=== PATIENT | male | born 1935 | race Caucasian/White ===

== ENCOUNTER 2023-11-05 13:43 | Inpatient (IN) | payer OTHER, SELFPAY ==
[2023-11-05] VITALS (33 sets, daily range): BP systolic 82–151; BP diastolic 53–124; BMI 24.8; BMI 24.7
--- NOTE | 2023-11-05 08:58 | ED.GENMED ---
History of Present Illness
General
Chief Complaint: CVA/TIA Symptoms
Time Seen by Provider: 11/05/23 08:57
History of Present Illness
History of Present Illness:
HPI: The patient presents due to a change in mental status. He was last seen normal/at his baseline at midnight (9 hours ago). At some point this morning, he was found altered. EMS was called and they brought him here for further evaluation.
Family found him near his walker in an awkward position. Abrasions were noted to the knees as well as a small abrasion/very superficial laceration to the chin. He normally walks with a walker and communicate without difficulty. EMS states that
the blood sugar was 300.
EXAM:
GENERAL: The patient is ill-appearing
EYES: Miosis bilaterally approximately 2 mm
HEENT: Moist oral mucosa
CARDIOVASCULAR: No murmurs, normal heart rate, regular rhythm, No chest wall tenderness
PULMONARY: No respiratory distress, breath sounds are clear and equal
ABDOMEN: Soft with no peritoneal signs, no tenderness
NEUROLOGIC: The patient appears globally weak, he does not attempt to move against gravity in any extremity,
PSYCHIATRIC: Appropriate mental status, normal insight and judgement
EXTREMITIES: Nontender, no edema, moves all extremities equally
SKIN: No rash, no lesions
TIME OF INITIAL ENCOUNTER: 9 AM
NUMBER AND COMPLEXITY OF PROBLEMS ADDRESSED AT THE ENCOUNTER
� Chronic conditions affecting care: Atrial fibrillation on Eliquis
� Acute Exacerbation and/or Progression of Chronic Illness: This is an acute problem
� Differential Diagnosis includes: Ischemic stroke, intracranial hemorrhage, medication effect, sepsis, hypoglycemia
AMOUNT AND/OR COMPLEXITY OF DATA TO BE REVIEWED AND ANALYZED
� I performed an independent evaluation of and my interpretation is:
EKG: A-fib 115, nonspecific ST abnormality, and 2020 he was in a sinus rhythm
CT: CT of the brain reviewed at 9:27 AM and shows no intracranial hemorrhage or other acute abnormality; I also personally viewed the CT of the C-spine and see no acute fracture but noted rather significant degenerative disease
X-rays: Chest x-ray shows no acute abnormality
Laboratory Studies: White count is 29.9, of note leukocytosis is frequently seen since 2019 but today's is higher than prior
Other:
� Review of other/old records: Echo from July 2022 showed normal systolic function with mild valvular disease
� Clinical information was obtained by an independent historian: I spoke to EMS and as of 9:09 AM I am waiting to speak to family. I spoke to the son at 9:11 AM, the son states that he has had multiple strokes in the past but
normally can communicate and able to use a walker and is able to feed himself. Son indicates that he is 'DNR' and does not want any aggressive measures.
� Prescriptions/Medications Considered but not given:
� Further testing considered but not performed:
RISK OF COMPLICATIONS AND/OR MORBIDITY OR MORTALITY OF PATIENT MANAGEMENT
� Social determinants of health affecting care: Lives at home with family
� Discussion with other providers: I spoke to Dr. Mathews who also evaluated patient at 9:10 AM; I spoke to Dr. Unger regarding MRI request by Dr. Mathews at 9:55 AM; I discussed case with Dr. Ayala who recommends additional
bicarb and rectal Kayexalate. Hospitalist for admission.
� Escalation of care including admission/observation vs risk of discharge considered: The patient has rather significant aphasia but is globally weak. I spoke to Dr. Mathews at 9:05 AM and we decided to make him a stroke alert.
CT brain and CT of the C-spine do not show any acute abnormality. Dr. Mathews also recommends MRI of the C and T-spine noncontrast which she has ordered. I spoke to the son at bedside at 10:10 AM who tells me that he is in permanent A-fib. I also
spoke to the lab indicating that they checked the potassium twice and it is confirmed to be 8.0 without hemolysis. Hyperkalemia treatment has been ordered at 10:10 AM. The nurse drained his bladder and there was only 150 mL of urine in the
bladder�no evidence for urinary retention. He was given IV fluids. He was initially given 6 units of IV insulin. Repeat blood sugar at 11:24 AM is 333. Will give an additional 4 units of insulin. MRI is ready for him, will plan rectal
Kayexalate after he returns from MRI.
Past History
Past History
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
orthostatic hypotension, vitamin B12 deficiency, erectile dysfunction) and Other (syncope in 2002)
ED Past Surgical History: Cardiac (A. fib ablation November 2016), Orthopedic (L (2006) and R (2011) hip replacments.), Tonsilectomy and Other (cataract extractions, pulmonary vein isolation 2016)
Social History
Tobacco: Former smoker (Quit at age 27, smoked one half pack per day for less than 10 years)
Alcohol: Occasional
Personal:
Living: with family
Employment: Retired
Family History
Family History: Other (reviewed and noncontributory)
Phy Exam
Physical Exam
Physical Exam:
See HPI
Scores
NIH Stroke Score
Level of Consciousness: 1 - Arousable
LOC Questions: 2-Neither correct
LOC Commands: 1-Performs one correctly
Best Horizontal Gaze: 0-Normal
Visual Wilcox: 0=Normal, no visual loss
Facial Palsy: 0=Normal, symmetrical
Motor - Right Arm: 2=Partial vs. gravity
Motor - Left Arm: 2=Partial vs. gravity
Motor - Right Le-Partial vs. gravity
Motor - Left Le-Partial vs. gravity
Limb Ataxia: 0-Absent
Sensation: 0-Normal
Best Language: 2-Severe aphasia
Dysarthria: 2-Severe slurring
Extinction and Inattention: 0-No abnormality
Total Score:: 16
Course
Orders/Labs/Results
Orders:
Orders
11/05/23 08:57
Electrocardiogram (*1) Urgent
Reason for Study: TIA/Stroke
CT Cervical Spine W/o Iv Contr Urgent
Comment:
Reason For Exam: trauma
EKG- Treatment ONCE
11/05/23 09:05
CT Head W/o Cont STROKE ALERT Urgent
Comment:
Reason For Exam: alt ms
CT Head/Neck Ang STROKE ALERT Urgent
Comment:
Reason For Exam: alt ms
11/05/23 09:10
Basic Metabolic Panel Urgent
Complete Blood Count/With Diff Urgent
Creatine Phosphokinase Urgent
Comment: ADD ON
Manual Differential Urgent
11/05/23 09:32
Straight cath- Treatment ONCE
0.9% Sodium Chloride 1000 ml [Nss] 1,000 ml IV BOLUS
11/05/23 09:33
CR Chest Portable - 1 View Urgent
Comment:
Reason For Exam: alt ms
Reason Study Needs to be Portable: Patient Unstable
11/05/23 09:45
MR Cervical Spine Without & W Stat
Reason For Exam: Flaccid quadriplegia, ? spine contusion or infarct
Recent pill cam endoscopy?: No
MR Thoracic Spine W/o & With Stat
Reason For Exam: Flaccid quadriplegia, ? spine contusion or infarct
Recent pill cam endoscopy?: No
11/05/23 09:46
Blood Culture Q30M
ROSAMARIA Source: Blood/Venous
Specimen Description:
11/05/23 10:04
Lactic Acid Q4H
Comment: CANCEL 2nd LACTIC ACID IF 1st LACTIC ACID IS LESS THAN 2
Blood Culture Q30M
ROSAMARIA Source: Blood/Venous
Specimen Description:
11/05/23 10:07
Albuterol Nebs [Ventolin Nebules] 2.5 mg INH R NOW STA
Calcium Gluconate 1 gram/100mL [Calcium Gluconate] 1 gram in 100 ml IV ONCE
Dextrose 50%-Water [Dextrose 50% Syringe] 25 grams IV NOW STA
Insulin Human Regular [Novolin R] 6 units IV NOW STA
Sodium Bicarbonate 50 meq IV NOW STA
11/05/23 10:08
Peak Flow Rate [RESP] Urgent
Quantity: 1
Pre-Bronchodilator: Yes
Post Bronchodilator: Yes
Special Instructions: Pre and Post Peak Flow before and after Bronchodilator
11/05/23 10:33
Urinalysis Reflex To Culture Urgent
Date Specimen was Collected: 11/05/23
Time Specimen was Collected: 10:32
Urine Microscopic Reflex Cult Urgent
Urine Culture Urgent
ROSAMARIA Source: U
Specimen Description:
Date Specimen was Collected: 11/05/23
Time Specimen was Collected: 10:32
11/05/23 10:42
0.9% Sodium Chloride 1000 ml [Nss] 1,000 ml IV BOLUS
11/05/23 10:51
Speech Screening from Mary Routine
11/05/23 10:52
Cefepime HCl [Maxipime] 1,000 mg IV NOW STA
11/05/23 10:59
Acetone [B-Hydroxybutyrate] Urgent
Glucose Urgent
Venous Blood Gas Urgent
%Oxygen/Room Air: 2lpm
11/05/23 11:02
Sodium Bicarbonate 50 meq IV NOW STA
Sodium Zirconium Cyclosilicate [Lokelma] 10 gram PO NOW STA
11/05/23 11:04
Sps Sodium Polystyrene Sulfon [Kayexalate Suspension] 45 grams RECTAL NOW STA
11/05/23 11:08
Vancomycin [Vancocin] 2,000 mg 0.9% Sodium Chloride 500 ml [Nss] 500 ml IV NOW
11/05/23 11:15
Bedside Glucose- Treatment ONCE
11/05/23 11:17
Sterile Water [Sterile Water For Injection] 10 ml .ROUTE .[facility]
11/05/23 11:23
Insulin Human Regular [Novolin R] 4 units IV NOW STA
11/05/23 13:08
Add On- LAB Urgent
Tests Added?: cpk
11/05/23 13:15
Add On- LAB Urgent
Tests Added?: lft's, albumin, mag , phos
11/05/23 13:45
Lactic Acid Q4H
Comment: CANCEL 2nd LACTIC ACID IF 1st LACTIC ACID IS LESS THAN 2
Abnormal Lab Results
11/05/23 11/05/23 11/05/23
09:10 10:04 10:33
WBC 29.9 H 10^3/uL
(4.8-10.8)
RBC 4.48 L 10^6/uL
(4.70-6.10)
RDW 15.5 H %
(11.5-14.5)
MPV 12.1 H fL
(7.4-10.4)
Abs Neuts (Manual) 28.4 H 10^3/uL
(1.4-6.5)
Segmented Neutrophils 80 H %
(42-75)
Band Neutrophils 15 H %
(0-3)
Lymphocytes (Manual) 1 L %
(20-51)
Sodium 134 L mmol/L
(135-145)
Potassium 8.0 H* mmol/L
(3.5-5.1)
Carbon Dioxide 14 L* mmol/L
(22-30)
BUN 23 H mg/dl
(9-20)
Creatinine 2.1 H mg/dL
(0.7-1.3)
Glucose 305 H mg/dl
(70-99)
Lactic Acid 10.5 H* mmol/L
(0.7-2.0)
Calcium 7.2 L mg/dl
(8.4-10.2)
Urine Ketones 2+ A
(Negative)
Ur Occult Blood Reflex 2+ A
(Negative)
Urine Bacteria (Reflex) Moderate A
(Negative)
Urine Glucose 2+ A
(Negative)
Urine Albumin (Reflex) 1+ A
(Neg - Trace)
POC Glucose
11/05/23
11:17
WBC
RBC
RDW
MPV
Abs Neuts (Manual)
Segmented Neutrophils
Band Neutrophils
Lymphocytes (Manual)
Sodium
Potassium
Carbon Dioxide
BUN
Creatinine
Glucose
Lactic Acid
Calcium
Urine Ketones
Ur Occult Blood Reflex
Urine Bacteria (Reflex)
Urine Glucose
Urine Albumin (Reflex)
POC Glucose 333 H mg/dl
(70-99)
11/05/23 09:10
Vital Signs
Initial and Last Documented VS:
Initial Vital Signs
Pulse Resp Pulse Ox
103 35 93
11/05/23 09:05 11/05/23 09:05 11/05/23 09:05
Last Documented Vital Signs
Temp Pulse Resp BP Pulse Ox
95.6 F L 99 27 100/83 98
11/05/23 09:10 11/05/23 11:15 11/05/23 11:15 11/05/23 11:00 11/05/23 11:15
*Critical Care Note
Total Time (30-74mins, 75-104mins- exclusive of procedures): 65 minutes
comment:
The patient was seen initially as a stroke alert. CT head and CTA head and neck are relatively unremarkable for acute abnormality. He is on Eliquis. There is no evidence for hemorrhage. He is found to have an initial potassium of 8.0.
ED Attending Note
-
Portions of this chart may have been created with voice recognition software.� Occasional wrong word or��sound alike� substitutions may have occurred due to the inherent limitations of voice recognition software.
Discharge Plan
Departure
Patient Disposition: Admit
Date of Disposition: 11/05/23
Time of Disposition: 11:06
Presentation/result/management discussed w/ accepting MD/DO: Hospitalist
Discharge Problem:
NEFTALI (acute kidney injury)
Prescriptions:
No Action
lisinopril 20 MG tablet
20 mg PO BID 0RF
atorvastatin [Lipitor] 40 mg Tablet
40 mg PO DAILY
acetaminophen [Tylenol] 325 mg Tablet
650 mg PO Q4HPRN PRN (Reason: MILD PAIN)
amlodipine [Norvasc] 2.5 mg Tablet
2.5 mg PO SUTUTHSA
tamsulosin [Flomax] 0.4 mg Capsule
0.4 mg PO DAILY
vitamin B complex [B Complete] Tablet
1 tab PO DAILY
metoprolol succinate [Toprol XL] 25 mg Tablet Extended Release 24 Hr
25 mg PO DAILY
cholecalciferol (vitamin D3) [Vitamin D3] 25 mcg (1,000 unit) Tablet
25 mcg PO DAILY
furosemide 40 MG tablet
40 mg PO MOWEFR
cyanocobalamin (vitamin B-12) 1,000 MCG tablet
1,000 mcg PO DAILY Qty: 60 0RF
Eliquis 5 MG tablet
5 mg PO BID Qty: 60 0RF
Referrals:
Fran Robin MD [Family Provider] -
Interventions
Interventions:
*Risk Screen - Suicide Last Done: 11/05/23 09:10
*General Assessment Last Done: 11/05/23 09:10
*Neglect/Abuse Screening Last Done: 11/05/23 09:10
ED- Fall Risk Assessment Last Done: 11/05/23 09:10
ED- Pulmonary Assessment Last Done: 11/05/23 10:00
ED- Neurological Assessment Last Done: 11/05/23 10:00
ED- Cardiac Assessment Last Done: 11/05/23 10:00
ED Swallowing Screen Last Done: 11/05/23 10:52
Discharge Date and Time
Print Language: SYRIAC
--- NOTE | 2023-11-05 09:20 | EDRN ---
Rylee cervical collar placed prior to leaving CT scan.
--- NOTE | 2023-11-05 09:23 | CON.NEURO4 ---
Consultation - Neurology 4
-
CONSULTING PHYSICIAN: Carlos Mathews
REFERRING PHYSICIAN: ER
DICTATED BY: Carlos Mathews
DATE/TIME OF REQUEST: 11/05/23
DATE/TIME OF CONSULTATION: 11/05/23
Reason for Consultation: Stroke alert, generalized severe weakness, speech abnormality
History of Present Illness:
Patient is an 88-year-old male with a past no history of ischemic stroke, dementia, atrial fibrillation presenting the hospital with confusion and generalized weakness.
He was last seen by family last night around 12 to 1 AM and was found around 730 this morning in an unusual position with the arms bent around him as well as extended at the back and neck over chair in the morning. His son feels that his speech is
a little bit abnormal for him but his teeth are nodding currently. Patient denies any pain. Stroke alert was called due to generalized severe weakness along with abnormal speech.
Lab work notable for leukocytosis to 29.9, potassium of 8.0, creatinine of 2.1, glucose of 305.
No history of any head or neck trauma or spine surgeries.
Past Medical History: Multiple ischemic strokes, dementia, hypertension, paroxysmal atrial fibrillation, HFpEF
Surgical History: Cardiac ablation for atrial fibrillation, bilateral hip replacements, tonsillectomy, cataract surgery
Family History: Unknown
Social History: Lives with his daughter, uses walker at baseline, retired, son lives in the area, no tobacco or alcohol
Allergies: No known drug allergies
Review of Symptoms:
Patient denies any fever, headache, chest pain, shortness of breath, GI or symptoms.
Physical Exam:
Elderly man no acute distress no signs of head or neck trauma, c-collar in place, oropharynx is dry, heart rate regular, breathing unlabored abdomen soft nontender, left knee with abrasion and swelling
Neurologic Examination:
Mental Status: Patient awake, mildly drowsy, says his full name, , obeys simple commands most of the time, attends and tracks examiner, slow speech, cognitive impairment is apparent
CN: Moderate dysarthria is present, no ptosis, pupils miotic 2-3 mm equal round and reactive to light bilaterally, visual wells intact to confrontation bilaterally, resting gaze midline, extra ocular movements are normal, face grossly symmetric
Motor: Patient shows no movement to pain in the arms bilaterally, overall has a quadriplegia with some movements of the toes bilaterally, has flaccid motor tone in the arms and legs in a symmetric fashion, he is able to wiggle his toes in both
feet to command but otherwise did not show any movements in the hips knees or ankles.
Sensory:Patient does report intact sensation to noxious stimulation in all extremities
Reflexes: Absent throughout in biceps triceps patella and achilles bialterally, babinski negative, no clonus
Coordination: Unable to assess due to generalized severe weakness
Gait: Unable to assess
Neuro Imaging: MRI of the cervical spine and thoracic spine with no acute spinal cord compression or obvious signs of acute intrinsic spinal cord abnormality small focus of open appears to be chronic myomalacia around C4-C5,
CTA head and neck no acute occlusions in MCA or basilar artery
CT head no hemorrhage, chronic strokes noted, no acute infact
Impressions
1. 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 MRI of the cervical and thoracic spine failed to show any acute lesion and no
signs of traumatic lesion to the spine either.
2. History of multiple strokes and likely vascular dementia at baseline
3. Not concerned for acute stroke as neurologic exam does not localize to the brain
4. NEFTALI
5. Severe hyperkalemia
6. Hyperglycemia
Patient has the following risk factors for their symptoms:
IV Tenecteplase/IAT candidacy: Is on Apixaban and thus not candidate for TNK/thrombolytics, not felt to be acute ischemic stroke
Recommendations:
1. Okay to remove cervical spine collar
2. Correct hyper kalemia urgently
3. Follow renal function and treat NEFTALI
4. Treat hyperglycemia
5. Okay to continue his existing home apixaban
6. Not recommending brain MRI
7. Neurologic checks monitor for improvement in muscle strength as his metabolic abnormalities are treated
Discussed patient care with: Patient, his son, ER physician
[2023-11-05 09:29] LABS: Hematocrit 40.7 % (39.0-52.0); Hemoglobin 13.6 g/dL (13.0-18.0); Mean Corp Hgb Conc. 33.4 g/dL (33.0-37.0); Mean Corpuscular Hgb 30.4 pg (27.0-31.0); Mean Corpuscular Volume 90.8 fL (80.0-94.0); Mean Platelet Volume 12.1 fL (7.4-10.4); Nucleated Red Blood Cells % 0 % (-); Platelet Count 220 10^3/uL (130-400); Red Blood Cell Count 4.48 10^6/uL (4.70-6.10); Red Cell Dist. Width 15.5 % (11.5-14.5); White Blood Cell Count 29.9 10^3/uL (4.8-10.8)
[2023-11-05 09:41] LABS: Sodium 134 mmol/L (135-145)
--- NOTE | 2023-11-05 09:41 | EDRN ---
Portable CXR was just completed. Dr. Mathews in room w/ pt at this time.
--- NOTE | 2023-11-05 09:43 | EDRN ---
Dr. Mathis in room on arrival of pt.
[2023-11-05 10:05] LABS: Blood Urea Nitrogen 23 mg/dl (9-20); Calcium 7.2 mg/dl (8.4-10.2); Carbon Dioxide 14 mmol/L (22-30); Chloride 101 mmol/L (98-107); Glucose 305 mg/dl (70-99)
[2023-11-05] MEDS: DEXTROSE 50% SYRINGE 25 GRAMS IV (10:16)
[2023-11-05] MEDS: NOVOLIN R 6 UNITS IV (10:18)
[2023-11-05] MEDS: SODIUM BICARBONATE 50 MEQ IV ×2 (10:21→13:52)
[2023-11-05] MEDS: VENTOLIN NEBULES 2.5 MG INH (10:21)
[2023-11-05] MEDS: NSS 1000 IV ×3 (10:22→16:56)
[2023-11-05] MEDS: CALCIUM GLUCONATE 100 IV (10:28)
[2023-11-05 10:38] LABS: Lactic Acid 10.5 mmol/L (0.7-2.0)
[2023-11-05 10:50] LABS: Estimated Creatinine Clearance 23 ml/min; eGFR 29.72
[2023-11-05 10:51] LABS: Urine Albumin 1+ (Neg - Trace); Urine Bilirubin Negative (Negative); Urine Character Clear (Clear); Urine Color Yellow; Urine Glucose 2+ (Negative); Urine Ketone 2+ (Negative); Urine Leukocyte Negative (Negative); Urine Nitrite Negative (Negative); Urine Occult Blood 2+ (Negative); Urine Specific Gravity 1.025 (<1.030); Urine Urobilinogen Negative (Neg - 1+)
[2023-11-05 11:01] LABS: Absolute Neutrophils -Man Diff 28.4 10^3/uL (1.4-6.5); Band Neutrophils 15 % (0-3); Lymphocytes 1 % (20-51); Monocytes 4 % (2-9); Normal RBC Morphology Yes; Platelets Checked Yes; Segmented Neutrophils 80 % (42-75)
[2023-11-05 11:02] LABS: Total Cells Counted 100
[2023-11-05 11:10] LABS: Urine Mucus Few; Urine Squamous Cell 0-2 /LPF (Few)
[2023-11-05 11:11] LABS: Urine Bacteria Moderate (Negative); Urine Red Blood Cell 0-2 /HPF (0-2); Urine White Cell 0-2 /HPF (0-5)
[2023-11-05] MEDS: MAXIPIME 1000 MG IV (11:18)
[2023-11-05 11:27] LABS: Glucose - Point of Care 333 mg/dl (70-99)
[2023-11-05] MEDS: NOVOLIN R 4 UNITS IV (11:27)
--- NOTE | 2023-11-05 11:36 | EDRN ---
Will administer kayexelate enema post MRI.
--- NOTE | 2023-11-05 12:31 | HPS.HSE ---
Addendum entered and electronically signed by Manish Brown MD 11/05/23 14:59:
see my update note for addendum
Original Note:
Family Physician
-
Family Physician: Fran Robin
Chief Complaint
-
Confusion, fall
History of Present Illness
88-year-old male who was seen last normal at midnight 11/05/2023. He was found this morning confused and altered by his family near his walker in an awkward position with arms bent under him at 730 this morning. His states they live in an
in-law suite behind her daughter but she sleeps in a separate bedroom then her . There was noted to be abrasions to bilateral knees , nose and superficial abrasion to the chin. He ambulates with a walker without difficulty normally . In
the ER he was noted to be hyperglycemic with blood sugars in the 300s along with hyperkalemic, slight hypotension and slightly hypothermic. Pt had flu shot in the fall per and son he did not react well to this. I spoke with patient's
Colleen who states he was normal yesterday he was not complaining of any headache, sore throat, fever, chills, chest pain, palpitations, shortness of breath, cough, abdominal pain, nausea, vomiting, diarrhea. The patient is awake and alert to
name he can follow some commands. He denies any current pain he is unable to feel from his right and left and acute down to fingers. Sensation is intact from neck to trunk to abdomen
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
baseline
Medical History
Past Medical History
Past Medical History: Reports Other
Additional Past Medical History:
paroxysmal A-fib
Chronic diastolic CHF
HTN
HLD
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
ex-smoker
OA
BPH
Past Surgical History: Reports Other
Additional Past Surgical History:
Tonsillectomy
Left hip replacement 2006
Right hip replacement
12/19/2016 PVI ablation
Cataract extraction
Social History
Tobacco: Non-smoker
Alcohol: None
Drug: None
Personal:
Living: With Family (Lives with Colleen and in-law suite at daughter's)
Employment: Retired
Family History
Family History: Other (Per his mother of a at age 91 she had former CVA age 60, father old age failure to thrive history of GI ulcer, brother age 70s alcohol abuse sister 70 CVA)
Allergies / Home Medications
Allergies reflects when Allergies were last updated in [facility].
Home Medications with original date entered in [facility]
Allergy/Medication List:
Allergies
Allergy/AdvReac Type Severity Reaction Status Date / Time
tape Allergy blisters Uncoded 11/05/23 09:30
Home Medications
apixaban 5 mg tablet (Eliquis) 5 mg PO BID #60 tabs 04/07/19
cyanocobalamin (vitamin B-12) 1,000 mcg tablet 1,000 mcg PO DAILY #60 tabs 04/07/19
lisinopril 20 mg tablet 20 mg PO BID 05/30/20
acetaminophen 325 mg tablet (Tylenol) 650 mg PO Q4HPRN PRN MILD PAIN 11/05/23
amlodipine 2.5 mg tablet (Norvasc) 2.5 mg PO SUTUTHSA 11/05/23
atorvastatin 40 mg tablet (Lipitor) 40 mg PO DAILY 11/05/23
cholecalciferol (vitamin D3) 25 mcg (1,000 unit) tablet (Vitamin D3) 25 mcg PO DAILY 11/05/23
furosemide 40 mg tablet 40 mg PO MOWEFR 11/05/23
metoprolol succinate 25 mg tablet,extended release 24 hr (Toprol XL) 25 mg PO DAILY 11/05/23
tamsulosin 0.4 mg capsule (Flomax) 0.4 mg PO DAILY 11/05/23
vitamin B complex 1 tab PO DAILY 11/05/23
Review of Systems
-
History Source: Patient and Family ( Colleen and son Donny via phone)
A 12 point ROS was completed and negative except as noted: Yes
Constitutional: Reports Fatigue; Denies Fever
EENT: Reports Other (Abrasion to nose and lower chin); Denies Sore Throat
Respiratory: Denies Cough or Trouble Breathing
Cardiac: Denies Chest Pain, Diaphoresis, Palpitations or Syncope
Abdomen/GI: Reports Abdominal Pain (Epigastric); Denies Nausea, Vomiting, Diarrhea, Constipated, Bloody Stools or Black Stools
: Denies Dysuria, Frequency, Flank Pain, Incontinence or Difficulty Voiding
Musculoskeletal: Reports Other (Bilateral knee abrasion); Denies Joint Pain or Edema
Skin: Reports Other (Bilateral knee abrasions); Denies Itching or Rash
Neurological: Reports Weakness (Generalized) and Other (Unable to move arms and legs can wiggle toes no sensation from elbows to fingers bilaterally including with needle); Denies Dizzy or Headache
Endocrine: Reports No Symptoms
Hematologic/Lymphatic: Reports No Symptoms
Psych: Reports Calm
Physical Exam
Vital Signs
Vital Signs
Temp Pulse Resp BP Pulse Ox
95.6 F L 99 27 100/83 98
11/05/23 09:10 11/05/23 11:15 11/05/23 11:15 11/05/23 11:00 11/05/23 11:15
Physical Exam
General: Other (Lethargic but able to communicate); No Pain or Fever
HEENT: NormoCephalic, Anicteric, PERRLA, [place] Conjunctivae, No Ptosis, Neck Nontender and Other (Dry oral mucosa, abrasion nose, chin)
Respiratory: Clear; No Wheezes, Rales or Rhonchi
Cardiac: S1/S2 and Irregular Rhythm (A-fib 113-150); No Murmur, Rub, Gallop or Peripheral Edema
Breast: Deferred by me
GI: Soft, Non Distended, Normal Bowel Sounds, Tender (Epigastric) and No Hepatosplenomegaly
Genito-urinary: Deferred by me
Musculoskeletal: No Clubbing, No Cyanosis and No Edema
Skin: Warm, Dry and Other (Abrasions to nose, chin, bilateral knees)
Neuro: Awake, Alert, Oriented (To name, review of systems) and Other (Patient with no dentures at home although is able to speak clearly and answer appropriately, he is unable to move his upper and lower extremities he has no sensation from elbows
to fingers bilaterally); No Slurred Speech, Facial Droop or Tremors
Psych: Calm
Laboratory Results
-
11/05/23 09:10
Laboratory Results
Lactic Acid 10.5 mmol/L (0.7-2.0) H* 11/05/23 10:04
Data Reviewed
-
Diagnostic Radiology: Report Reviewed by me
CT Scan: Report Reviewed by me
MRI: Report Reviewed by me
Lab Data: Labs Reviewed by me
Impression/Plan
-
Impression/plan:
Admit to IMU
# Septic shock /bandemia unclear etiology
WBC 29.9 with left shift 15% bands, 95.6 F, 100/83, HR 99
82/62 > 100/83 after 2 liters NSS
Lactic acid 10.5 will trend
-Blood cultures x 2, UA FLAKE CUTTER OPERATOR, B hydroxybutyrate
-Keren hugger until normothermic
-IV vancomycin, IV cefepime renal dose
-IV Protonix 40 mg now and 40 mg daily
-IV 2 L NSS given in ER
-Follow CBC, CMP
CXR portable: Limited but unremarkable
#Aphasia/confusion concern for CVA versus encephalopathy from sepsis
#Hx CVA 05/25/2020 MRI report-infarct left basal ganglia 2.2 cm old lacunar infarcts bilaterally camara radiata, centrum semiovale, 7 millimeter old lacunar infarct right Kai
-Hold all p.o. meds
-Consult neurology
-Neurochecks every 4 hours
-Check lipid profile, HgbA1c
-Speech swallow eval
PT/OT/case management consult
CT head: Moderate to severe changes of cortical atrophy chronic ischemic disease unchanged from prior study no acute hemorrhage
Head and neck CTA: Nonhemodynamically significant atherosclerotic changes of the internal carotids bilaterally left greater than right. No carotid or vertebral artery dissection, no evidence of proximal intracranial arterial
stenosis or vessel occlusion bilaterally
# Hypotension secondary to septic shock/HTN�benign
BP 82/62 >100/83 > 130/90 will hold medication given n.p.o. and hypotensive
-Hold Norvasc as patient is n.p.o.
#Acute hyperkalemia likely secondary to renal impairment
K8.0 -lab checked x 2
-Consult nephro
-Bicarb given in ER, IV insulin
-Kayexalate rectal
-Follow BMP every 6
#NEFTALI-multifactorial sepsis, diuretics, NURA
-Bladder 150 cc retained urine
-Follow UA FLAKE CUTTER OPERATOR
-IV NSS 2 L given in ER
-Consult nephro
-Hold lisinopril
#Abdominal pain unclear etiology
-Check LFTs, amylase lipase
IV Protonix 40 mg now and daily
--Ct abdomen pelvis given neftali and abd pain
#Acute hyperglycemia with poss DKA
BS 300, anion gap 19 will repeat BMP stat
-Accu-Cheks with SSI, check HgbA1c
#Acute hypocalcemia
Calcium 7.2
-Will give 1 amp calcium gluconate
#A-fib with RVR/ A-fib
#Hx PVI ablation 12/19/2016
Heart rate 140s
Hold Eliquis, Toprol XL 25 mg daily
-IV Lopressor 5 mg now
-Consult CBC cardiology
# Sensorimotor deficit bilateral upper extremities likely due to hyperkalemia
MRI lumbar thoracic spine negative
Neurology following
#Fall likely secondary to sepsis/encephalopathy with abrasions knees, superficial abrasion chin, abrasion nose
-Wash wounds with soap and water apply dry nonstick dressings
-Consult wound care
#HLD
Check lipid profile
Hold Lipitor as patient is n.p.o.
#Hx chronic diastolic CHF
I/O, daily weights
Hold Lasix 40 mg Thursday
2D echo 08/01/2022: EF 55-60% no wall abnormalities, mild to moderate MR, mild AR, mild pulm HTN pulm pressure 47 mmHg
DVT prophylaxis
Iv heparin gtt no bolus as patient was on prior Eliquis and did take yesterday 11/04/2023
DNR/DNI per son Caio via phone but would like pressors if going to make patient comfortable. Advised IV pressors will help support blood pressure only not necessarily make the patient comfortable.
--- NOTE | 2023-11-05 12:39 | EDRN ---
Dr. Ayala down to see pt while in MRI and now speaking w/ pt's son. Pt remains in MRI.
--- NOTE | 2023-11-05 12:49 | PTOTSP ---
ST Screening
Chart reviewed. Pt admitted for change in mental status, confusion, and fall. NIHSS=15. Pt admitted for sepsis 2/2 unclear etiology (WBC 29.9; K 8.0; hypotensive; hypothermic). CT Head unremarkable for any acute changes. Pt with baseline mild
residual dysarthria and aphasia, per old notes. Pt with no current diet order.
If pt is too disoriented to take PO at this time, would recommend keeping pt NPO until more awake/alert/appropriate. If ENGAGEMENT SPECIALIST guidance is desired to determine appropriateness for PO diet initiation candidacy, please order formal speech language
pathology evaluation. Thank you.
--- NOTE | 2023-11-05 12:51 | EDRN ---
First MRI completed still having others done at this time.
[2023-11-05] MEDS: VANCOCIN 540 MG IV (13:52)
[2023-11-05] MEDS: KAYEXALATE SUSPENSION 45 GRAMS RECTAL (13:53)
[2023-11-05 13:58] LABS: Venous Blood Gas B.E. -9.8 mmol/L (-4 to +4); Venous Blood Gas HCO3 17.1 mmol/L (22-27); Venous Blood Gas O2 Sat % 95.5 %; Venous Blood Gas pCO2 40 mmHg (35-48); Venous Blood Gas pH 7.24 (7.32-7.43); Venous Blood Gas pO2 75 mmHg (30-50)
[2023-11-05 14:12] LABS: Glucose 254 mg/dl (70-99)
[2023-11-05 14:15] LABS: Blood Urea Nitrogen 28 mg/dl (9-20); Calcium 7.5 mg/dl (8.4-10.2); Carbon Dioxide 17 mmol/L (22-30); Chloride 106 mmol/L (98-107); Glucose 255 mg/dl (70-99); Potassium 3.4 mmol/L (3.5-5.1); Sodium 137 mmol/L (135-145)
--- NOTE | 2023-11-05 14:15 | EDRN ---
Dr. Ayala and Peng Gaines BUSINESS SUPPORT SPECIALIST in room w/pt at this time.
[2023-11-05 14:18] LABS: B-Hydroxybutyrate 0.21 mmol/L (0.02-0.27)
[2023-11-05 14:21] LABS: Lactic Acid 6.7 mmol/L (0.7-2.0)
--- NOTE | 2023-11-05 14:26 | W.PN.UPDATE ---
Update Note
Progress Note Update
I saw and examined the patient.
The [employer] [employer] note was reviewed and I agree with the note.
Comment: 88 y/o M, hx of chronic HFpEF, HLD, HTN, perm Afib on Eliquis, prior hx of CVAs presenting to hospital with generalized weakness, confusion. He was last seen around midnight as his normal and then found at 730 AM in a position where his
arms were bent around him, slumped over in a chair. His speech was abnormal. He was noted to have abrasions to knees, nose. No other known symptoms or complaints after discussing with .
At baseline ambulates with walker and lives in in-law suite.
In ER noted to have several metabolic derangements with hyperkalemia, NEFTALI, possible sepsis. A CVA alert was called and workup negative.
Patient given IVF, empiric Abx and K+ temporization measures and admitted.
Physical Exam
General: Other (Lethargic but able to communicate); No Pain or Fever
HEENT: NormoCephalic, Anicteric, PERRLA, [place] Conjunctivae, No Ptosis, Neck Nontender and Other (Dry oral mucosa, abrasion nose, chin)
Respiratory: Clear; No Wheezes, Rales or Rhonchi
Cardiac: S1/S2 and Irregular Rhythm (A-fib 113-150); No Murmur, Rub, Gallop or Peripheral Edema
Breast: Deferred by me
GI: Soft, Non Distended, Normal Bowel Sounds, Tender (Epigastric) and No Hepatosplenomegaly
Genito-urinary: Deferred by me
Musculoskeletal: No Clubbing, No Cyanosis and No Edema
Skin: Warm, Dry and Other (Abrasions to nose, chin, bilateral knees)
Neuro: Awake, Alert, Oriented (To name, review of systems) and Other (Patient with no dentures at home although is able to speak clearly and answer appropriately, he is unable to move his upper and lower extremities he has no sensation from elbows
to fingers bilaterally); No Slurred Speech, Facial Droop or Tremors
Psych: Calm
Assessment:
Admit IMU
Acute life-threatening hyperkalemia
NEFTALI
Severe metabolic (lactic acidosis)
Hypocalcemia
- s/p ER temporization: insulin/dextrose, IV Calc gluconate, Kayexalate, Lokelma, bicarb x 2, Albuterol, IVF
- repeat K+ is now 3.4
- repeat Cr 1.5
- continue IVF
- hold nephrotoxins
- bladder scans/SC protocol
Severe sepsis (leucocytosis, tachypnea, bandemia, lactic acidosis)
- continue sepsis protocol IVF; follow lactates
- may need pressors (ok'd by Son)
- check cultures
- check CT A/P (dry) to evaluate for any acute GI/ pathology
- empiric Vanco, Cefepime, Flagyl
Abdominal pain
- cannot tolerate PO or IV contrast
- check CT A/P (dry) to evaluate for any acute GI/ pathology
- await LFTs, lipase, trop
- IV PPI
Permanent A.fib with RVR
HX of Ablation
- check TSH, trop
- IV Lopressor x 1; hold PO
- ok for IV heparin - requires intensive monitoring
- Cardiology consulted
Aphasia/confusion concern for CVA versus encephalopathy from all above medical processes
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
Fall with knee, head abrasions
Hx of Multiple CVA and Vascular dementia
- treat K+ as above
- stat CT and CT-A negative, spinal MRI negative
- Neuro following
- neuro checks
- PT/OT/ST when able
- wound care for abrasions
Acute hyperglycemia from stress of medical illness
No hx of DM
- repeat BMP with AG 14
- + ketones but unlikely DKA
- sliding scale + accu-checks q6h while NPO
- check A1c
Essential HTN
- hold BP meds for sepsis state
HLD - hold statin
Hx chronic diastolic CHF
- monitor weights, I/Os
- hold Lasix
DVT ppx: IV Heparin
Code: DNR/DNI
[2023-11-05 14:32] LABS: Estimated Creatinine Clearance 32 ml/min
--- NOTE | 2023-11-05 14:36 | W.CON.NEPH ---
Consultation
-
Date/Time Consultation Requested: 11/05/23 1145
Date/Time Consultation Performed: 11/05/23 1415
Requesting Provider: Manish Jacobs
Performing Provider: Gayatri Sandoval
Reason for Consultation: NEFTALI, hyperkalemia with met acidosis
Medical History
-
Chief Complaint: AMS, fall
History of Present Illness:
88-year-old male with PMH of HTN on Amlodipine, lisinopril,BB, DCHF on lasix MWF, Afib on AC with Eliquis, HLD on statin ,prior CVA with no residual effect who was seen last normal at midnight 11/05/2023. He was found this morning confused and
altered by his family near his walker in an awkward position with arms bent under him at 730 this morning. Per they live in an in-law suite behind her daughter but she sleeps in a separate bedroom than her . There was noted to be
abrasions to bilateral knees , nose and superficial abrasion to the chin. He ambulates with a walker without difficulty normally . In the ER he was noted to be hyperglycemic with blood sugars in the 300s along with hyperkalemic at 8, cr at 2.1, no
EKG changes. Only 150cc urine on SC. slight hypotension and slightly hypothermic. The patient is awake and alert to name he can follow some commands. He denies any current pain he is unable to feel from his right and left and acute down to fingers.
chronic ambulatory dysfunction uses walker at baseline. He offers no CP or sob or cough or fever. No n/v. No Abd pain.
Past Medical History
paroxysmal A-fib
Chronic diastolic CHF
HTN
HLD
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
Dementia
ex-smoker
OA
BPH
Past Surgical History: Other (Tonsillectomy Left hip replacement 2006 Right hip replacement 12/19/2016 PVI ablation Cataract extraction)
Social History
son Caio is director of cardiac rehab at
Tobacco: Non-Smoker
Alcohol: None
Drug: None
Living: With Family
Employment: Retired
Family History
mother of a at age 91 she had former CVA age 60, father old age failure to thrive history of GI ulcer, brother age 70s alcohol abuse sister 70 CVA
Family History: Not Pertinent
Allergies / Home Medications
Allergy/AdvReac Type Severity Reaction Status Date / Time
tape Allergy blisters Uncoded 11/05/23 09:30
�Medication �Instructions �Recorded �Confirmed �Type
acetaminophen 325 mg tablet 650 mg PO Q4HPRN PRN MILD PAIN 11/05/23 11/05/23 History
(Tylenol)
amlodipine 2.5 mg tablet (Norvasc) 2.5 mg PO SUTUTHSA Blood Pressure 11/05/23 11/05/23 History
apixaban 5 mg tablet (Eliquis) 5 mg PO BID Blood Clot 11/05/23 11/05/23 History
Prevention/Tx
atorvastatin 40 mg tablet (Lipitor) 40 mg PO DAILY High Cholesterol 11/05/23 11/05/23 History
cholecalciferol (vitamin D3) 25 25 mcg PO DAILY Supplement 11/05/23 11/05/23 History
mcg (1,000 unit) tablet (Vitamin
D3)
cyanocobalamin (vitamin B-12) 1,000 mcg PO DAILY Supplement 11/05/23 11/05/23 History
1,000 mcg tablet
furosemide 40 mg tablet 40 mg PO MOWEFR Fluid 11/05/23 11/05/23 History
Retention/Swelling
lisinopril 20 mg tablet 20 mg PO BID Blood Pressure 11/05/23 11/05/23 History
metoprolol succinate 25 mg 25 mg PO DAILY Blood Pressure 11/05/23 11/05/23 History
tablet,extended release 24 hr
(Toprol XL)
tamsulosin 0.4 mg capsule (Flomax) 0.4 mg PO DAILY 11/05/23 11/05/23 History
vitamin B complex 1 tab PO DAILY 11/05/23 11/05/23 History
Review of Systems
-
limited history from pt
all complete 12 point ROS have been inquired and found negative other than stated in HPI
Physical Exam
Vital Signs
Vital Signs
Temp Pulse Resp BP Pulse Ox
95.6 F L 113 29 130/79 98
11/05/23 09:10 11/05/23 13:45 11/05/23 13:45 11/05/23 13:38 11/05/23 13:45
Lab Results
WBC 29.9 10^3/uL (4.8-10.8) H 11/05/23 09:10
RBC 4.48 10^6/uL (4.70-6.10) L 11/05/23 09:10
Hgb 13.6 g/dL (13.0-18.0) 11/05/23 09:10
Hct 40.7 % (39.0-52.0) 11/05/23 09:10
Plt Count 220 10^3/uL (130-400) 11/05/23 09:10
Sodium 137 mmol/L (135-145) 11/05/23 13:48
Potassium 3.4 mmol/L (3.5-5.1) L D 11/05/23 13:48
Chloride 106 mmol/L (98-107) 11/05/23 13:48
Carbon Dioxide 17 mmol/L (22-30) L 11/05/23 13:48
BUN 28 mg/dl (9-20) H 11/05/23 13:48
Creatinine 1.5 mg/dL (0.7-1.3) H 11/05/23 13:48
eGFR 44.50 11/05/23 13:48
Glucose 254 mg/dl (70-99) H 11/05/23 13:48
Glucose 255 mg/dl (70-99) H 11/05/23 13:48
Calcium 7.5 mg/dl (8.4-10.2) L 11/05/23 13:48
Initial labs sodium 134, K 8, bicarb 14, cr 2.1, gap 19, BG 3.5, Lactic acid 10.5, christopher 7.2
CT head:
IMPRESSION:
There are moderate to severe changes of cortical atrophy and chronic ischemic disease unchanged from prior study. There is no acute hemorrhage
CTA head and neck:
IMPRESSION:
Nonhemodynamically significant atherosclerotic changes of the internal carotid arteries bilaterally, left internal carotid artery slightly greater than right.
No findings to suggest internal carotid artery or vertebral artery dissection bilaterally.
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
No evidence of proximal intracranial arterial stenosis or vessel occlusion bilaterally.
CXR:
FINDINGS:
The heart size and pulmonary vasculature is normal. There are no focal consolidations or pleural effusions. There is no pneumothorax. There is a suboptimal inspiration.
There are degenerative changes in the thoracic spine and involving both shoulders.
IMPRESSION:
Limited but unremarkable portable chest
MRI C and T spine:
IMPRESSION:
Postcontrast cervical spine imaging is severely degraded by patient motion. Patient unable to fully cooperate. Repeat imaging was performed.
No gross evidence of abnormal enhancement on postcontrast imaging in the cervical or thoracic spine.
There is multilevel degenerative disk and joint disease as outlined above. Please see above text. The most significant degenerative changes at C4-5 and C5-6.
There is a single focus of very minimal/slight faint increased T2 signal intensity within the cervical cord at the C4-5 level, where there is moderate disk bulging and a left central disk protrusion at C5-6. This could represent very minimal
myelopathy from the degenerative change. There is no abnormal enhancement in this region. No other focal area of abnormality. This area is not clearly identified on the STIR images.
13 mm fluid signal intensity structure in the pancreas likely represents a cyst or cystic neoplasm such as IPMN. Contrast-enhanced pancreatic MRI could be performed to fully evaluate.
Bilateral incompletely imaged renal cysts.
Chronic lung changes. Follow-up for 2 small pulmonary nodules in the right upper lung zone seen on head and neck angiography earlier today.
Physical Exam
General: Awake, Alert, Oriented, No Distress and Nontoxic
HEENT: EOMI and Anicteric
Respiratory: Clear, Normal Excursion and Nonlabored Respirations
Cardiac: S1/S2 and Regular Rate/Rhythm (irregular)
Breast: Deferred by me
Abdomen: Soft, Nontender and Nondistended
Musculoskeletal: No Cyanosis and No Edema
Skin: Other (multiple abrassions noted on face, nose, bilat knees)
Neuro: Other (limited at this time, decreased sensation elbow down, can not lift UE)
Psych: Mood/afflect pleasant and Appropriate
Data Reviewed
-
Radiology: Report Reviewed by me, Discussed with Physician and Discussed with Nurse
Labs: Labs Reviewed by me, Discussed with Physician, Discussed with Nurse, Discussed with Patient and Discussed with Family
Assessment/Plan
-
IMP:
Septic shock /bandemia unclear etiology
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
TME
h/o HTN�benign
Hypotension secondary to septic shock
Severe hyperkalemia
NEFTALI
h/o HTN�benign
h/o HTN�benign
Abdominal pain
Hyperglycemia, no h/o DM
Hypocalcemia
A-fib with RVR/ A-fib
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
HLD
Hx chronic diastolic CHF
2D echo 08/01/2022: EF 55-60% no wall abnormalities, mild to moderate MR, mild AR, mild pulm HTN pulm pressure 47 mmHg
Plan:
A/w AMS, fall at home unwitnessed with concern of CVA, CTA not revealing
felt to be from metabolic derangements per neuro
Severe hyperkalemia with out EKG changes now improved only with insulin
hold kayexalate, follow k and replace as needed
NEFTALI-suspect prerenal, cont IVF with caution h/o DCHF-hold lasix, check CK
UA bland but +ve ketones, bld +ve, 1+alb
avoid nephrotoxins, contrast exposure today, hold ACEI
Hypotension ?sepsis-w.u in progress, improving BP with IVF
Met acidosis, A gap of 19 and lactic acid of 10 seem simple Acid base
however with hyperglycemia and ketones in urine concern of DKA
If met acidosis persists, change to bicarb IVF
hypocalcemia-check vit D, check phos too s/p IV christopher, need alb for correction
labs later today
d/w son Caio on phone prior to repeat labs (who is cardiac rehabilitation teacher here)-understands the critical situation ok K at 8 and wishes no AERONAUTICAL ENGINEERING PROFESSOR if needed
d/w primary, nursing
--- NOTE | 2023-11-05 14:49 | CON.CAR ---
Addendum entered and electronically signed by Maverick Knapp MD 11/05/23 17:42:
88 yo male with PMH of A fib, which seems persistent, on eliquis, chronic HFPEF, moderate MR was found minimally responsive on chair, with garbled speech. Patient opens eyes but does not respond. Exam with tachy, irregular rhythm, II/ systolic
murmur at apex, trace LE edema. He was hypothermic.
Labs showed elevated WBC, lactate, potassium, NEFTALI.
Neuro evaluated patient. Also with paralysis--thought be related to severe hyperkalemia. HCT did not show CVA.
Patient is being treated for sepsis, unknown source of infection currently. BP better after IV fluids.
We are consulted for A fib with RVR. NPO currently due to mental status. Neuro is OK with heparin drip for AC. Will use IV lopressor as long as BP tolerates.
Monitor volume status with h/o of HFPEF and moderate MR. Check echo.
Son updated by phone.
Original Note:
Consultation
Consultation Request
Date/Time Consultation Requested: 11/05/23 1427
Date/Time Consultation Performed: 11/05/23 1440
Requesting Provider: Nolvia Gaines NP
Performing Provider: Melanie HARDING for Dr. Knapp
Reason for Consultation: AFIB with RVR
Medical History
-
Chief Complaint: change in MS
History of Present Illness:
88 y/o male with AFIB (hx PVI 2017, but has been in rate-controlled AFIB), HFpEF, CVA's, moderate MR, HTN, HLD who is here for change in MS- per chart, found by family slumped over in chair with abdominal speech. Abrasions to knees/face noted. In
ER, he was seen to have elevated WBC, hypothermia, hyperkalemia (8.0), NEFTALI. BP was low. He was treated for severe hyperkalemia. He is s/p fluids and antibiotics. We are consulted for AFIB with RVR in this setting. He is being given a dose of IV
metoprolol. He is in no distress at the time of my assessment, but is currently a poor historian, so HPI etc. obtained from chart. Neurology evaluated patient and does not suspect stroke, but rather neuromuscular abnormalities secondary to severe
hyperkalemia, hyperglycemia, and NEFTALI. Head CT negative for acute abnormality.
Past Medical History
Past Medical History: Arrhythmias, CHF, CVA, HTN, Hypercholesterolemia and Valvular Disease
Social History
Personal:
Living: With Family
Family History
Family History: Reviewed & Not Pertinent
Allergies / Home Medications
Allergy/AdvReac Type Severity Reaction Status Date / Time
tape Allergy blisters Uncoded 11/05/23 09:30
�Medication �Instructions �Recorded �Confirmed �Type
acetaminophen 325 mg tablet 650 mg PO Q4HPRN PRN MILD PAIN 11/05/23 11/05/23 History
(Tylenol)
amlodipine 2.5 mg tablet (Norvasc) 2.5 mg PO SUTUTHSA Blood Pressure 11/05/23 11/05/23 History
apixaban 5 mg tablet (Eliquis) 5 mg PO BID Blood Clot 11/05/23 11/05/23 History
Prevention/Tx
atorvastatin 40 mg tablet (Lipitor) 40 mg PO DAILY High Cholesterol 11/05/23 11/05/23 History
cholecalciferol (vitamin D3) 25 25 mcg PO DAILY Supplement 11/05/23 11/05/23 History
mcg (1,000 unit) tablet (Vitamin
D3)
cyanocobalamin (vitamin B-12) 1,000 mcg PO DAILY Supplement 11/05/23 11/05/23 History
1,000 mcg tablet
furosemide 40 mg tablet 40 mg PO MOWEFR Fluid 11/05/23 11/05/23 History
Retention/Swelling
lisinopril 20 mg tablet 20 mg PO BID Blood Pressure 11/05/23 11/05/23 History
metoprolol succinate 25 mg 25 mg PO DAILY Blood Pressure 11/05/23 11/05/23 History
tablet,extended release 24 hr
(Toprol XL)
tamsulosin 0.4 mg capsule (Flomax) 0.4 mg PO DAILY 11/05/23 11/05/23 History
vitamin B complex 1 tab PO DAILY 11/05/23 11/05/23 History
Review of Systems
-
Unable to obtain full review of systems at this time due to: Other (patient currently poor historian )
History Source: Other (chart)
Neurological: Weakness and Other (speech difficulty, change MS)
Physical Exam
Vital Signs
Temp Pulse Resp BP Pulse Ox
97.1 F 103 29 138/96 100
11/05/23 14:25 11/05/23 14:30 11/05/23 14:30 11/05/23 14:00 11/05/23 14:30
Lab Results
11/05/23 22:00
Physical Exam
General: Well Developed, Well Nourished and No Apparent Distress
HEENT: Normocephalic and Anicteric
Respiratory: Clear and Non Labored Respirations
Cardiac: Irregular Rhythm
Skin: Warm, Dry and Other (abrasions to chin, nose)
Neuro: Awake and Alert
Psych: Calm
Impression / Plan
-
Change in MS, weakness, aphasia:
-patient evaluated by neuro- no stroke suspected. Likely related to hyperkalemia, NEFTALI, hyperglycemia all of which are improving.
-monitor for improved
-also with sepsis as below
Sepsis:
-elevated WBC, lactic acid, hypothermia
-cultures pending
-getting abx
-getting imaging
Hyperkalemia:
-severe
-improved s/p treatment in ER
AFIB with RVR:
-patient seems to have permanent AFIB at this point. Typically rate-controlled, but now fast in setting of acute illness with suspected septic shock. HR already improved with IV fluids etc, though still fast.
-treat underlying illness
-while he is NPO, IV metoprolol
-on Eliquis for OAC ([id number] score 7 for age, CVA, HTN, CHF, DM). On Eliquis. He is ordered heparin drip for now (requires intensive monitoring).
-follow telemetry, update echo (in AM once HR better)
NEFTALI:
-improved with IVF
-hold ACEI, lasix
-neprho consulted
HTN:
-monitor with BB
Data Reviewed
-
EKG: Tracing Personally Visualized and interpreted (AFIB with RVR 115 BPM)
Radiology: Report Reviewed by me (Limited but unremarkable portable chest)
Medical Tests (Nuc Med, Echo etc): Report Reviewed by me (Echo 08/01/22: Normal biventricular size and systolic function without regional wall motion abnormality. Mild to moderate mitral regurgitation. Mild aortic regurgitation. Mild pulmonary
hypertension. )
Labs: Labs Reviewed by me
[2023-11-05 14:56] LABS: Amylase 74 U/L (30-110); Lipase 57 U/L (23-300)
[2023-11-05 14:59] LABS: APTT 46.4 Sec (23.4-35.0); INR 2.68; PT 28.9 Sec (11.4-14.6)
--- NOTE | 2023-11-05 15:01 | EDRN ---
Attempting to call report to ICU at this time.
[2023-11-05] MEDS: PROTONIX IV 40 MG IV (15:14)
--- NOTE | 2023-11-05 15:14 | EDRN ---
Report called to Katya MELVIN at this time in ICU.
--- NOTE | 2023-11-05 15:17 | WOUNDNOTE ---
WOUND/SKIN CARE NOTE: Pt identified by name and .
[2023-11-05 15:19] LABS: ALT (SGPT) 145 U/L (0-50); Albumin 3.4 g/dl (3.5-5.0); Alkaline Phosphatase 70 U/L (38-126); Direct Bilirubin 0.5 mg/dl (0.0-0.4); Magnesium 2.5 mg/dl (1.6-2.3); Phosphorus 5.6 mg/dl (2.5-4.5); Total Bilirubin 1.4 mg/dl (0.2-1.3); Total Protein 5.8 g/dl (6.3-8.2)
--- NOTE | 2023-11-05 15:25 | EDRN ---
Camera not functioning. Pt has circumferal bruising in L axilla and proximal L upper arm and on R upped arm. Pt has bilateral knee abrasions and redness covering bilateral knees. Pt has abrasion on posterior mid R calf about quarter sized. Pt has
bruising noted over L chest and slight bruise on R chest. Pt has bruise on R LQ of abd. R elbow has small abrasion.
--- NOTE | 2023-11-05 15:28 | EDRN ---
Pt also has blood red areas noted on each of his R toes and an abrasion under his chin and neck surrounded by redness.
[2023-11-05 15:32] LABS: Troponin I 0.089 ng/ml
[2023-11-05] MEDS: HEPARIN 25000 UNITS/250 ML IV (15:32)
[2023-11-05 15:33] LABS: AST (SGOT) 786 U/L (17-59)
[2023-11-05 16:16] LABS: Creatine Phosphokinase 54844 U/L (55-170)
[2023-11-05 16:18] LABS: Phosphorus 5.5 mg/dl (2.5-4.5)
--- NOTE | 2023-11-05 16:50 | PTCARENOTE ---
16:30 patient arrived from ED transfer via stretcher. Arrived with heparin infusing at 8.5ml/850unit/hr via left AC #18. On 2L of oxygen via nasal cannula BP RT upper arm 112/71 MAP 84 Afib 111-150; POX 97%/2L Afebrile . patient awake, oriented to
himself . Disoriented to place and time. Unable to move B/L UE and LE. multiple skin abrasions ( see skin assessment ) Condom catheter applied drainin clear yellow urine . DNR bracelet applied to left arm .
[2023-11-05] MEDS: LOPRESSOR 5 MG IV ×2 (17:01→20:55)
[2023-11-05 17:21] LABS: Glucose - Point of Care 209 mg/dl (70-99)
--- NOTE | 2023-11-05 17:38 | W.PN.UPDATE ---
Update Note
Progress Note Update
Problem addendum post additional labs
#Acute rhabdomyolysis likely from fall
CPK 86085
Will give IV NSS with 20 KCl at 100 cc an hour
-Follow CPK
#Acute hyperkalemia likely secondary to acute rhabdo myelosis
Repeat potassium is 3.4 after IV insulin/dextrose/Kayexalate
-Will give IV NSS with 20 KCl
-Follow BMP every 6
#Acute transaminitis secondary to acute rhabdo
AST 76 will follow CMP
-CT abdomen pelvis still pending
#Nonischemic myocardial injury
Troponin 0.089
-will trend troponin, follow EKG
[2023-11-05] MEDS: TYLENOL/FEVERALL 650 MG RECTAL (18:04)
[2023-11-05] MEDS: NSS with KCL 20 MEQ 1000 IV (18:36)
[2023-11-05] MEDS: NOVOLOG FLEXPEN-LOW RESISTANCE 2 UNITS SC (18:37)
[2023-11-05 18:57] LABS: Hematocrit 39.5 % (39.0-52.0); Hemoglobin 13.1 g/dL (13.0-18.0); Mean Corp Hgb Conc. 33.2 g/dL (33.0-37.0); Mean Corpuscular Volume 90.4 fL (80.0-94.0); Mean Platelet Volume 12.9 fL (7.4-10.4); Platelet Count 178 10^3/uL (130-400); Red Blood Cell Count 4.37 10^6/uL (4.70-6.10); Red Cell Dist. Width 15.5 % (11.5-14.5); White Blood Cell Count 26.1 10^3/uL (4.8-10.8)
[2023-11-05 19:24] LABS: Troponin I 0.187 ng/ml
[2023-11-05 19:26] LABS: Lactic Acid 5.2 mmol/L (0.7-2.0)
[2023-11-05 19:29] LABS: Blood Urea Nitrogen 30 mg/dl (9-20); Calcium 7.2 mg/dl (8.4-10.2); Carbon Dioxide 15 mmol/L (22-30); Chloride 111 mmol/L (98-107); Estimated Creatinine Clearance 32 ml/min; Glucose 208 mg/dl (70-99); Potassium 3.6 mmol/L (3.5-5.1); Sodium 142 mmol/L (135-145)
[2023-11-05 19:55] LABS: TSH Reflex To Free T4 0.96 uIU/ml (0.47-4.68)
--- NOTE | 2023-11-05 21:45 | W.PN.UPDATE ---
Update Note
Progress Note Update
Labs noted with significant Rhabdo-54k
persistent met acidosis hence will change to bicarb
caution with h/o CHF
no UOP yet, bladder scan, if needed place kang
monitor labs , replace k as needed
d/w nursing
[2023-11-05 22:18] LABS: APTT 156.1 Sec (23.4-35.0)
[2023-11-05] MEDS: SODIUM BICARBONATE 1150 MEQ IV (22:27)
[2023-11-05] MEDS: MAXIPIME 2000 MG IV (22:51)
[2023-11-05] MEDS: STERILE WATER FOR INJECTION 10 ML IV (22:51)
--- NOTE | 2023-11-05 22:57 | PTCARENOTE ---
report received. pt nonverbal. ct abd obtained. pt in afib in 140's. nirmal lucia notified. lopressor 5mg iv ordered and admin. hep gtt @8.5ml/hr. nss w/ bicarb infusing per neph order. kang cath placed per neph order. will monitor.
[2023-11-06] VITALS (53 sets, daily range): BP systolic 72–143; BP diastolic 49–118; BMI 24.8
[2023-11-06] MEDS: LOPRESSOR 5 MG IV ×2 (00:05→23:05)
[2023-11-06 01:27] LABS: Lactic Acid 4.5 mmol/L (0.7-2.0)
[2023-11-06] MEDS: CARDIZEM 125 IV ×3 (02:13→18:37)
--- NOTE | 2023-11-06 02:15 | PTCARENOTE ---
hr 130's sustained. bp 140's/100's. emergency medical dispatcher notified. cardizem gtt @ 15ml/hr started per order. will monitor.
[2023-11-06 03:00] LABS: Troponin I 0.275 ng/ml
[2023-11-06 05:14] LABS: Hematocrit 35.9 % (39.0-52.0); Hemoglobin 12.3 g/dL (13.0-18.0); Mean Corp Hgb Conc. 34.3 g/dL (33.0-37.0); Mean Corpuscular Hgb 29.6 pg (27.0-31.0); Mean Corpuscular Volume 86.3 fL (80.0-94.0); Mean Platelet Volume 12.8 fL (7.4-10.4); Platelet Count 184 10^3/uL (130-400); Red Blood Cell Count 4.16 10^6/uL (4.70-6.10); Red Cell Dist. Width 15.9 % (11.5-14.5); White Blood Cell Count 33.9 10^3/uL (4.8-10.8)
[2023-11-06 05:27] LABS: APTT 157.1 Sec (23.4-35.0)
[2023-11-06] MEDS: NSS with KCL 20 MEQ IV (05:43)
[2023-11-06] MEDS: MORPHINE SULFATE 1 MG IV (05:43)
[2023-11-06] MEDS: LOPRESSOR IV ×3 (05:58→17:25)
--- NOTE | 2023-11-06 05:58 | PTCARENOTE ---
Increased work of breathing noted. respirations @ 36 w/ accessory muscle use. rock crusher operator notified. morphine ordered and admin. abg ordered. rt at bedside. will monitor.
[2023-11-06 06:00] LABS: B.E. -3.9 mmol/L; HCO3 18.5 mmol/L (21-28); O2 Saturation % 96.9 % (94-98); O2 Therapy 2L NC; PCO2 26 mmHg (35-48); PO2 74 mmHg (83-108); pH 7.46 (7.35-7.45)
[2023-11-06 06:05] LABS: Vancomycin Random 18.2 ug/ml
[2023-11-06 06:53] LABS: Glucose - Point of Care 152 mg/dl (70-99)
[2023-11-06 07:27] LABS: ALT (SGPT) 442 U/L (0-50); Albumin 2.7 g/dl (3.5-5.0); Alkaline Phosphatase 65 U/L (38-126); Blood Urea Nitrogen 38 mg/dl (9-20); Calcium 6.4 mg/dl (8.4-10.2); Carbon Dioxide 16 mmol/L (22-30); Chloride 111 mmol/L (98-107); Estimated Creatinine Clearance 25 ml/min; Glucose 138 mg/dl (70-99); HDL Cholesterol 41 mg/dl; LDL Cholesterol, Calculated -1 mg/dl; Potassium 4.5 mmol/L (3.5-5.1); Sodium 139 mmol/L (135-145); Total Bilirubin 1.5 mg/dl (0.2-1.3); Total Cholesterol 56 mg/dl (50-199); Total Protein 5.1 g/dl (6.3-8.2); Triglyceride 83 mg/dl (10-149); Very Low Density Lipoprotein 16 mg/dl (0-30); eGFR 33.51
--- NOTE | 2023-11-06 07:43 | W.PN.NEURO.1 ---
Today's Communication / Plan
-
Recommendations:
Treat hyperglycemia
Okay to continue his existing home apixaban
May require brain MRI if no improvement
Neuro Assessment/Plan
Assessment
Neuro Imaging: MRI of the cervical spine and thoracic spine with no acute spinal cord compression or obvious signs of acute intrinsic spinal cord abnormality, chronic myomalacia around C4-C5,
CTA head and neck no acute occlusions in MCA or basilar artery
CT head no hemorrhage, chronic strokes noted, no acute infact
Impressions
1. 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
2. History of multiple strokes and likely vascular dementia at baseline
Plan
Recommendations:
Treat hyperglycemia
Okay to continue his existing home apixaban
May require brain MRI if no improvement
Neurologic checks monitor for improvement in muscle strength as his metabolic abnormalities are treated
Will follow
Subjective/Objective
Subjective Data
Date of Service: November 06, 2023
Patient unable to provide his own medical history
Objective Data
Vital Signs
Temp Pulse Resp BP Pulse Ox
36.8 C 73 34 100/53 93
11/06/23 07:21 11/06/23 05:45 11/06/23 05:45 11/06/23 05:45 11/06/23 05:45
Lab Results
11/06/23 04:59
11/06/23 04:59
PT 28.9 Sec (11.4-14.6) H 11/05/23 14:38
INR 2.68 11/05/23 14:38
APTT 157.1 Sec (23.4-35.0) H* 11/06/23 04:58
Sodium 139 mmol/L (135-145) 11/06/23 04:59
Potassium 4.5 mmol/L (3.5-5.1) 11/06/23 04:59
BUN 38 mg/dl (9-20) H 11/06/23 04:59
Glucose 138 mg/dl (70-99) H 11/06/23 04:59
Calcium 6.4 mg/dl (8.4-10.2) L* 11/06/23 04:59
Phosphorus 5.5 mg/dl (2.5-4.5) H 11/05/23 13:48
LDL Cholesterol, Calc -1 mg/dl 11/06/23 04:59
Patient Allergies
tape Allergy (Uncoded 11/05/23 09:30)
blisters
Review of Systems
-
Unable to obtain full review of systems at this time due to: Dementia
History Source: Patient
All other systems: Reviewed and negative
Physical Exam
-
General: No Apparent Distress and Appears Stated Age
Eyes: Round OU, [place] Conjunctivae and No Ptosis
HEENT: Anicteric and Moist Mucous Membranes
Neck: Full Range of Motion
Respiratory: No Dyspnea
Cardiac: No JVD
GI: Non-distended
Skin: Unremarkable
Extremities: No Clubbing, No Cyanosis and No Edema
Psych: Unable to Assess
Extended Neurological Exam
Mood & Affect: Affect Unremarkable
Attention Span & Concentration: Awake, Alert and Other (Right some difficulty with single step requests); Negative Interactive
Memory: Unable to Assess
Tremor: Hand Tremor Absent and Head Tremor Absent
Speech: Mute
Cranial Nerve II: Left Eye: Pupillary Size Unremarkable and Visual [place] Grossly Intact
Cranial Nerve II: Right Eye: Pupillary Size Unremarkable and Visual Wilcox Grossly Intact
Cranial Nerves III, IV, : Extraocular Movement: Grossly Intact
Cranial Nerve V: Facial Sensation: Unable to Assess
Cranial Nerve VII: Facial Symmetry: Normal Facial Symmetry
Cranial Nerve VIII: Hearing: Unremarkable Hearing to Normal Conversational Volume
Cranial Nerve XII: Tongue Protusion: Unable to Assess
Muscle Strength, Overall: Absent (Throughout otherwise) and Spontaneously Moves (Toes bilaterally)
Muscle Bulk & Tone: Bulk Unremarkable and Tone Unremarkable
Touch Sensation: Unremarkable
Coordination: Unable to Assess
Gait & Station: Unable to Assess
Data Reviewed
-
MRI Cervical Spine: Report Reviewed
MRI Thoracic Spine: Report Reviewed
Labs: Report Reviewed
Reviewed with: Physician and Nurse
Old Records: Summarized
Past History
Past History
ED Past Medical History: Arrthythmia (Atrial fibrillation), CVA (February 2019 left MCA stroke; September 2018 acute stroke while in [place]; right internal capsule lacunar infarct prior to 2002), HTN, Hypercholesterolemia, Other (macular pucker,
orthostatic hypotension, vitamin B12 deficiency, erectile dysfunction) and Other (syncope in 2002)
ED Past Surgical History: Cardiac (A. fib ablation November 2016), Orthopedic (L (2006) and R (2011) hip replacments.), Tonsilectomy and Other (cataract extractions, pulmonary vein isolation 2016)
Social History
Tobacco: Former smoker (Quit at age 27, smoked one half pack per day for less than 10 years)
Alcohol: Occasional
Personal:
Living: with family
Employment: Retired
Family History
Family History: Other (reviewed and noncontributory)
[2023-11-06] MEDS: NSS (PRESERVATIVE FREE) 10 ML IV (07:46)
[2023-11-06] MEDS: PROTONIX IV 40 MG IV (07:46)
--- NOTE | 2023-11-06 08:22 | W.PN.CD ---
Today's Communication / Plan
-
cotninue rate control with IV agents while npo
currently given rhabdo needs IVF
will follow
Impression / Plan
-
Change in MS, weakness, aphasia:
-patient evaluated by neuro- no stroke suspected. Likely related to hyperkalemia, NEFTALI, hyperglycemia all of which are improving.
-monitor for improved
-also with sepsis as below
Sepsis shock:
-elevated WBC, lactic acid, hypothermia
-cultures pending
-getting abx
-getting imaging
CT Abd/Pelvis 11/05/23: IMPRESSION: Patchy parenchymal opacity within the visualized lower lungs, and degree of opacity appears greater than usually expected with atelectasis. Findings raise concern for bilateral lower lung pneumonia. There is
probably a trace amount of pleural fluid bilaterally.
AFIB with RVR:
-patient seems to have permanent AFIB at this point. Typically rate-controlled, but now fast in setting of acute illness with suspected septic shock. HR already improved with IV fluids and dilt gtt
-treat underlying illness
-while he is NPO, IV diltiazem/BB
-on Eliquis for OAC ([id number] score 7 for age, CVA, HTN, CHF, DM). On Eliquis. He is ordered heparin drip for now (requires intensive monitoring).
-follow telemetry, Echo being done at bedside currently
.
Rhabdomyolysis:
-IVF
-Nephrology
NEFTALI:
-initally severe Hyperkalemia, now improved
-improved with IVF
-hold ACEI, lasix
-neprho consulted
HTN:
-low normal currently
Subjective
-awake but doesn't speak
Physical Exam
Vital Signs/Labs
Vital Signs
Temp Pulse Resp BP Pulse Ox
98.2 F 73 34 100/53 93
11/06/23 07:21 11/06/23 05:45 11/06/23 05:45 11/06/23 05:45 11/06/23 05:45
11/05/23 11/06/23 11/07/23
06:59 06:59 06:59
Actual Weight 71.7 kg
11/06/23 04:59
11/06/23 04:59
PT 28.9 Sec (11.4-14.6) H 11/05/23 14:38
INR 2.68 11/05/23 14:38
APTT 157.1 Sec (23.4-35.0) H* 11/06/23 04:58
Magnesium 2.5 mg/dl (1.6-2.3) H 11/05/23 09:10
Triglycerides 83 mg/dl (10-149) 11/06/23 04:59
LDL Cholesterol, Calc -1 mg/dl 11/06/23 04:59
VLDL Cholesterol, Calc 16 mg/dl (0-30) 11/06/23 04:59
HDL Cholesterol 41 mg/dl 11/06/23 04:59
LAB Results
11/05/23 11/05/23 11/06/23
09:11 18:47 02:07
Troponin I 0.089 H* 0.187 H* 0.275 H* D
Physical Exam
Constitutional: No acute distress
Cardiovascular: Pedal edema is absent, JVD pressure is normal and Rhythm/rate is irregular
Respiratory: Respiratory effort normal, Lungs clear to auscul., Wheeze Absent, Crackles Absent and Rhonchi Absent
Neuro/Psych: AO x 3
Data Reviewed
-
Date of Service: November 06, 2023
Medical Tests (PFT, Pathology etc): Discussed with Family (Updated Ms Fletcher)
[2023-11-06 08:25] LABS: Vitamin D, 25-OH*** 39.3 ng/mL (30-80)
[2023-11-06 08:26] LABS: Absolute Neutrophils -Man Diff 27.4 10^3/uL (1.4-6.5); Band Neutrophils 14 % (0-3); Lymphocytes 13 % (20-51); Monocytes 3 % (2-9); Segmented Neutrophils 67 % (42-75)
[2023-11-06 08:27] LABS: Acanthocytes 1+; Hypochromasia 1+; Metamyelocytes 3 % (-); Normal RBC Morphology No; Nucleated Red Blood Cells 1 (-); Ovalocytes 1+; Platelets Checked Yes; Polychromasia 1+
[2023-11-06 08:28] LABS: Total Cells Counted 100
--- NOTE | 2023-11-06 08:32 | W.PN.NEPH.PH ---
Today's Communication / Plan
-
Maintain alkaline IV fluids in setting of metabolic acidosis and rhabdomyolysis
Recheck ionized calcium and BMP later this afternoon
Assessment/Plan
-
IMP:
Septic shock /bandemia unclear etiology
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
TME
h/o HTN�benign
Hypotension secondary to septic shock
Severe hyperkalemia
NEFTALI (rhabdo)
h/o HTN�benign
h/o HTN�benign
Abdominal pain
Hyperglycemia, no h/o DM
Hypocalcemia
A-fib with RVR/ A-fib
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
HLD
Hx chronic diastolic CHF
2D echo 08/01/2022: EF 55-60% no wall abnormalities, mild to moderate MR, mild AR, mild pulm HTN pulm pressure 47 mmHg
Plan:
A/w AMS, fall at home unwitnessed with concern of CVA, CTA not revealing
felt to be from metabolic derangements per neuro
Acute kidney injury likely a function of evolving rhabdomyolysis as initial CPKs were greater than 55,000, follow daily CPK levels
Oliguric via Kang
Maintain alkaline IV fluids in setting of rhabdomyolysis and metabolic acidosis, monitor volume status closely given patient's history of diastolic congestive heart failure
Remains hemodynamically unstable
avoid nephrotoxins, contrast exposure today, holding ACEI
hypocalcemia-checked vit D, check phos, provided IV calcium earlier this am, follow up ionized calcium
labs later today
Patient remains critically ill with hypotension persistent oliguric acute renal failure
Following urine output is concerning and dialysis may need to be entertained within next 24 hours as patient remains persistently tachypneic likely driven by underlying metabolic acidosis
Patient remains critically ill with evolving rhabdomyolysis acute renal failure tachypnea and atrial fibrillation with rapid ventricular response on Cardizem IV drip
d/w primary, nursing
Total Time Spent with Patient (in minutes): 31
-
-
Date of Service: November 06, 2023
CC / HPI / ROS
-
Chief Complaint:
NEFTALI
Metabolic acidosis
History of Present Illness:
Metabolic acidosis persist
Remains on Cardizem and heparin in setting of atrial fibrillation
Creatinine persistently elevated at 1.9
Hypocalcemia
Review of Systems:
Oliguric via kang
Tachypnea
no fever
Labs
-
Labs:
WBC 33.9 10^3/uL (4.8-10.8) H 11/06/23 04:59
RBC 4.16 10^6/uL (4.70-6.10) L 11/06/23 04:59
Hgb 12.3 g/dL (13.0-18.0) L 11/06/23 04:59
Hct 35.9 % (39.0-52.0) L 11/06/23 04:59
Plt Count 184 10^3/uL (130-400) 11/06/23 04:59
Sodium 139 mmol/L (135-145) 11/06/23 04:59
Potassium 4.5 mmol/L (3.5-5.1) 11/06/23 04:59
Chloride 111 mmol/L (98-107) H 11/06/23 04:59
Carbon Dioxide 16 mmol/L (22-30) L 11/06/23 04:59
BUN 38 mg/dl (9-20) H 11/06/23 04:59
Creatinine 1.9 mg/dL (0.7-1.3) H 11/06/23 04:59
eGFR 33.51 11/06/23 04:59
Glucose 138 mg/dl (70-99) H 11/06/23 04:59
Calcium 6.4 mg/dl (8.4-10.2) L* 11/06/23 04:59
Phosphorus 5.5 mg/dl (2.5-4.5) H 11/05/23 13:48
Albumin 2.7 g/dl (3.5-5.0) L 11/06/23 04:59
Physical Exam
-
Vital Signs:
Vital Signs
Temp Pulse Resp BP Pulse Ox
98.2 F 73 34 100/53 93
11/06/23 07:21 11/06/23 05:45 11/06/23 05:45 11/06/23 05:45 11/06/23 05:45
Cardiovascular:: Irregular rate and rhythm
Respiratory:: Bilateral: CTA
Lung Excursion:: Normal
Abdomen:: Nontender and Soft
Bowel Sounds:: Decreased
Extremity Edema:: None: Bilateral:
Kang Catheter: Yes
[2023-11-06] MEDS: CALCIUM GLUCONATE 280 MG IV (08:47)
[2023-11-06 08:59] LABS: Glycohemoglobin (HgbA1c) 6.7 % (4.0-5.6)
[2023-11-06 09:01] LABS: AST (SGOT) 2028 U/L (17-59)
--- NOTE | 2023-11-06 09:42 | PTOTSP ---
Dysphagia Evaluation
Patient is at an acute high risk for dysphagia/aspiration given AMS (not following any commands) and respiratory status (tachypnea with RR 36 at rest with accessory muscle use). He is inappropriate for oral PO in any form at this time.
Recommend:
1. NPO - consider temporary non-oral means
2. Medications non-oral
3. Oral care 3x day with suction
4. Hold Aspiration Risk Hydration Protocl given factors above
5. Dysphagia therapy for re-assessment at the acute care level
[2023-11-06] MEDS: MAXIPIME 2000 MG IV (10:00)
[2023-11-06] MEDS: SODIUM BICARBONATE 1150 MEQ IV (10:01)
[2023-11-06] MEDS: STERILE WATER FOR INJECTION 10 ML IV ×2 (10:01→22:49)
[2023-11-06 10:07] LABS: Creatine Phosphokinase > 128000 U/L (55-170)
--- NOTE | 2023-11-06 10:23 | W.PN.HOSP.TC ---
Today's Communication/Plan
-
see outlined plan continue IVF, Silvestre monitor UOP
CT chest to eval PNA and continue IV Abx
Assessment / Plan
Assessment / Plan
Assessment:
Acute rhabdomyolysis
Acute life-threatening hyperkalemia
NEFTALI with oliguria, possible ATN
Severe metabolic (lactic acidosis)
Hypocalcemia
- s/p ER temporization: insulin/dextrose, IV Calc gluconate, Kayexalate, Lokelma, bicarb x 2, Albuterol, IVF
- repeat K+ is now 4.5 (had briefly become hypokalemic)
- repeat Cr 1.9
- continue sodium bicarbonate IVF
- hold nephrotoxins
- monitor I/Os and Silvestre
- may need acute HD in 24 hours
Severe sepsis (leucocytosis, tachypnea, bandemia, lactic acidosis)
- continue sepsis protocol IVF; follow lactates most recently 4.5
- may need pressors (ok'd by Son)
- follow cultures
- CT A/P (dry): Patchy parenchymal opacity within the visualized lower lungs, and degree of opacity appears greater than usually expected with atelectasis. Findings raise concern for bilateral lower lung pneumonia. There is probably a trace amount
of pleural fluid bilaterally.
- follow up CT Chest ordered
- continue Vanco, Cefepime, day 2. add Flagyl if aspiration
Non-[place] trop elevation in setting of sepsis. afib
- suspected underlying CAD with Coronary artery calcifications on CT
- trop .275; trend to peak
Abdominal pain
- cannot tolerate PO or IV contrast
- CT A/P (dry) without acute pathology, possible stercoral colitis covered by Cefepime/Flagyl
- LFTs AST >>ALT consistent with rhabdo, sepsis
- IV PPI
Permanent A.fib with RVR
HX of Ablation
- TSH normal
- on Cardizem drip - requires intensive monitoring
- IV Lopressor q6h
- on IV heparin - requires intensive monitoring
- Cardiology following
Aphasia/confusion concern for CVA versus encephalopathy from all above medical processes
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
Fall with knee, head abrasions
Hx of Multiple CVA and Vascular dementia
- treat K+ as above
- stat CT and CT-A negative, spinal MRI negative
- Neuro following
- neuro checks
- PT/OT/ST when able
- wound care for abrasions
Acute hyperglycemia from stress of medical illness
No hx of DM
- repeat BMP with AG 12
- + ketones but unlikely DKA
- sliding scale + accu-checks q6h while NPO
- A1c 6.7%
Hypocalcemia
- workup pending
- IV Calcium ordered
Essential HTN
- hold BP meds for sepsis state
HLD - hold statin
Hx chronic diastolic CHF
- monitor weights, I/Os
- hold Lasix
Slightly displaced fracture involving the anterior and superior margin of the upper sacrum. Stranding soft tissue density within the adjacent presacral space which likely represents contusion/stranding hematoma associated with this fracture.
DVT ppx: IV Heparin
Code: DNR/DNI
Total Critical Care Time 42 minutes. I was immediately available to the patient and staff. I personally examined, reviewed labs, diagnostic images/reports, interpretations, treatment plans, discussed patient care with other providers and family
or caregivers (if patient is unable to make decisions), entered orders as appropriate and documented the medical record.
Anticipated Discharge: > 48 hours
Subjective/Interval History
-
Date of Service: November 06, 2023
awake, non-verbal
renal failure and urine output worsening, in severe rhabdo on bicarb drip
Objective Data
-
Labs:
Laboratory Results
11/06/23 11/06/23 11/06/23
04:58 04:59 05:47
WBC 33.9 H
Hgb 12.3 L
Hct 35.9 L
Plt Count 184
APTT 157.1 H*
HCO3 18.5 L
Sodium 139
Potassium 4.5
Chloride 111 H
Carbon Dioxide 16 L
BUN 38 H
Creatinine 1.9 H
Glucose 138 H
Calcium 6.4 L*
Total Bilirubin 1.5 H
AST 2028 H*
ALT 442 H
Alkaline Phosphatase 65
11/06/23 11/06/23
12:00 15:00
WBC
Hgb
Hct
Plt Count
APTT Pending
HCO3
Sodium Pending
Potassium Pending
Chloride Pending
Carbon Dioxide Pending
BUN Pending
Creatinine Pending
Glucose Pending
Calcium Pending
Total Bilirubin
AST
ALT
Alkaline Phosphatase
Vital Signs:
Vital Signs
Temp Pulse Resp BP Pulse Ox
98.2 F 73 34 100/53 93
11/06/23 07:21 11/06/23 05:45 11/06/23 05:45 11/06/23 05:45 11/06/23 05:45
I&O
11/05/23 11/06/23 11/07/23
06:59 06:59 06:59
Intake Total 1417.1 / 1417.1
Output Total 350 / 350
Balance 1067.1 / 1067.1
Physical Exam
-
General: No Apparent Distress and Appears Chronically Ill
HEENT: Normocephalic
Respiratory: Negative Wheezes or Rales
Cardiac: Irregular Rhythm
GI: Soft
Genito-urinary: No Costovertebral Tender and Silvestre
Neuro: Awake
Hematologic / Lymphatic: No Lymphadenopathy
Psych: Calm
Data Reviewed
-
Critical Care Time (in minutes): 42
Labs: Labs Reviewed by me
--- NOTE | 2023-11-06 10:44 | PHA.VAN.IN ---
Addendum entered and electronically signed by Nimisha Flanagan [facility] 11/06/23 15:50:
Random level 11/05 1500 = 16.6 - half-life ~70 hours. NO dose today. Repeat level 11/06 am
Original Note:
Assessment
- Assessment
Renal Function: Appears elevated from baseline (SCr 2.1->1.9, baseline from 2020 0.9-1.2)
Maximum Temperature: 98.6
Minimum Temperature: 95.6
Concomitant Antimicrobials: cefepime
Plan
- Plan
Initial / Loading Dose: 2000mg (28 mg.kg) 11/04 13:52
Maintenance Regimen: continue to dose by level
Monitoring: R=18.2 11/05 04:59; no dose, next level R 11/05 at 15:00
MRSA Screen: Ordered per protocol
Pharmacokinetics Vancomycin I
- -
Patient Age: 88
Patient Sex: Male
Vancomycin Day #: 2
Indication: Other
Requesting Provider: Roberto Gaines NP
Pertinent Antimicrobial Allergies:
no pertinent allergies
Height / Weight:
Height 5 ft 7 in
Actual Weight 71.7 kg
- Vital Signs / Lab Results
Temp Pulse Resp BP Pulse Ox
98.2 F 73 34 100/53 93
11/06/23 07:21 11/06/23 05:45 11/06/23 05:45 11/06/23 05:45 11/06/23 05:45
Lab Results - Hematology
11/05/23 11/05/23 11/06/23
:10 18:47 04:59
WBC 29.9 H 26.1 H 33.9 H
Band Neutrophils 15 H 14 H
Lab Results - Chemistry
11/05/23 11/05/23 11/05/23
: 13:48 16:00
BUN 23 H 28 H Cancelled
Creatinine 2.1 H 1.5 H Cancelled
Estimated Creat Clear 23 32 Cancelled
Albumin 3.4 L
11/05/23 11/05/23 11/05/23
18:00 18:47 20:00
BUN Cancelled 30 H Cancelled
Creatinine Cancelled 1.5 H Cancelled
Estimated Creat Clear Cancelled 32 Cancelled
Albumin
11/05/23 11/06/23
22:00 04:59
BUN Cancelled 38 H
Creatinine Cancelled 1.9 H
Estimated Creat Clear Cancelled 25
Albumin 2.7 L
11/05/23 11/05/23 11/05/23
10:04 13:48 19:01
Lactic Acid 10.5 H* 6.7 H* 5.2 H*
11/06/23
00:42
Lactic Acid 4.5 H*
Lab Results - Urine
11/05/23
10:33
Urine Nitrite (Reflex) Negative
Leukocyte Esterase Rfl Negative
Urine WBC (Reflex) 0-2
Ur Squamous Epith Cells 0-2
Urine Bacteria (Reflex) Moderate A
Microbiology Results
11/05/23 10:04 Blood Culture - Preliminary
Blood/Venous No Growth in 24 hours- Final report to follow
11/05/23 09:46 Blood Culture - Preliminary
Blood/Venous No Growth in 24 hours- Final report to follow
11/05/23 10:33 Urine Culture - Final
Urine NO GROWTH
[2023-11-06 12:00] LABS: Glucose - Point of Care 148 mg/dl (70-99)
--- NOTE | 2023-11-06 12:08 | CM ---
Patient seen at bedside. Patient lives with his in an in-law suite next to daughter, Arabella. Patient requested CM to call daughter [phone]. Patient PCP is Dr. Madrigal and they use the [facility] in [place]. Patient has [facility]
prior to admission. Patient has a walker and a rail at bedside. Patient daughter states that her mother has home O2 and limited mobility. Patient daughter plan is to take patient home with VN and is asking for a hospital bed with rails, parker lift.
Patient daughter stated that the patient has essentially 24/7 care at home and that they do not have any interest in SNF placement due to the inability of her mother to go into a SNF with her medical comorbidities. Patient son has been in contact
with physician and CM will continue to follow for discharge planning needs.
Plan; pending assessments/medical treatment plan
[2023-11-06] MEDS: FLAGYL 500 MG 100 IV ×2 (12:53→19:58)
[2023-11-06] MEDS: NOVOLOG FLEXPEN-LOW RESISTANCE SC (12:53)
--- NOTE | 2023-11-06 13:20 | PN.CDI ---
CDI
- -
CDI:
Physician Documentation Request
Admit Date: 11/05/23 13:[address] Brown,
Clinical Indicators:
Patient admitted with severe sepsis, acute hyperkalemia/hypocalcemia, NEFTALI.
11/05 'Aphasia/confusion concern for CVA versus encephalopathy from all above medical processes'
Please specify the known or suspected type of the documented encephalopathy.
Acute Metabolic Encephalopathy
Acute Toxic metabolic Encephalopathy
Other encephalopathy, please specify
Use of terms such as suspected, likely, concern for, or probable (associated with a specific diagnosis that is being evaluated, monitored, or treated as if it exists) are acceptable and can be coded in the inpatient setting, when documented at the
time of discharge.
Thank you,
FRANCES Garcia RN
CDI Specialist
available via tiger text
Please use your independent medical judgment in providing your response.
[2023-11-06 13:26] LABS: APTT 90.9 Sec (23.4-35.0)
--- NOTE | 2023-11-06 13:32 | PN.CDI ---
CDI
- -
CDI:
Physician Documentation Request
Admit Date: 11/05/23 13:43
Dear Doctor Kevin,
Clinical Indicators:
Patient admitted with severe sepsis.
11/04 H & P, '...last normal at midnight 11/05/2023... He was found this morning confused and altered by his family near his walker in an awkward position with arms bent under him at 730 this morning'
11/04 Update note, 'Acute rhabdomyolysis likely from fall'
Based on etiology, please clarify the likely type of rhabdomyolysis:
Non traumatic rhabdomyolysis
Traumatic rhabdomyolysis
Other, please specify
Use of terms such as suspected, likely, concern for, or probable (associated with a specific diagnosis that is being evaluated, monitored, or treated as if it exists) are acceptable and can be coded in the inpatient setting, when documented at the
time of discharge.
Thank you,
FRANCES Garcia RN
CDI Specialist
available via tiger text
Please use your independent medical judgment in providing your response.
--- NOTE | 2023-11-06 13:41 | PN.CDI ---
CDI
- -
CDI:
Physician Documentation Request
Admit Date: 11/05/23 13:43
Dear Doctor Kevin,
Clinical Indicators:
Patient admitted with severe sepsis.
11/05 PN, 'Non-[place] trop elevation in setting of sepsis. afib'
Troponin trend:
11/05/23 11/05/23 11/06/23
:11 18:47 02:07
Troponin I 0.089 H* 0.187 H* 0.275 H* D
Based on the above, could you clarify in the progress notes, the appropriate diagnosis, if significant, that supports the above abnormalities and additional evaluation, monitoring and/or treatment rendered:
Non ischemic myocardial injury
Troponin elevation only
Other, please specify
Use of terms such as suspected, likely, concern for, or probable (associated with a specific diagnosis that is being evaluated, monitored, or treated as if it exists) are acceptable and can be coded in the inpatient setting, when documented at the
time of discharge.
Thank you,
FRANCES Garcia RN
CDI Specialist
available via tiger text
Please use your independent medical judgment in providing your response.
[2023-11-06 15:12] LABS: Ionized Calcium 0.87 mMOL/L (1.15-1.33)
[2023-11-06 15:31] LABS: Vancomycin Random 16.6 ug/ml
[2023-11-06 17:02] LABS: Blood Urea Nitrogen 50 mg/dl (9-20); Calcium 7.1 mg/dl (8.4-10.2); Carbon Dioxide 19 mmol/L (22-30); Chloride 106 mmol/L (98-107); Estimated Creatinine Clearance 19 ml/min; Glucose 143 mg/dl (70-99); eGFR 24.11
[2023-11-06 17:10] LABS: Sodium 137 mmol/L (135-145)
--- NOTE | 2023-11-06 17:37 | PTCARENOTE ---
Pt remains AOx0. Will respond to verbal stimuli and make eye contact but unable to purposefully communicate. Has no effort against gravity in B/L upper and lower extremities. No pain response in extremities. Remains in Afib - on cardizem at 15
mcg/min, rate controlled in 60-70s. Silvestre w/ scant output today. Fluids discontinued to prevent overload. Nephrology considering starting HD tomorrow.
[2023-11-06] MEDS: NOVOLOG FLEXPEN-LOW RESISTANCE 1 UNITS SC (17:58)
[2023-11-06 18:09] LABS: Glucose - Point of Care 155 mg/dl (70-99)
--- NOTE | 2023-11-06 20:00 | PTCARENOTE ---
Resumed care of pt laying in bed arousable to voice. pt able to open eyes to voice, attempts to say a word, incomprehensible. Pt unable to follow commands, slight eye contact, otherwise no staff interaction. Absent hand grasps. pt withdraws from
pain. Trace movement of B/L LE. Trace intermittent movement of B/L UE, otherwise flaccid t/o. Resumed care of pt with HR in the 50's-60's in AFib with occasional PVC's on the monitor. Cardizem gtt infusing @15mg/hr. Cardizem gtt order adjusted to
allow titration per Edi HARDING. Cardizem gtt titrated to Keep HR 80-100. Lungs course and dec t/o. Tachypneic at times. POX 97% on 2 LO2 NC. + bowel, round abd. Silvestre cath in place with 0 urine output. B/L knee abrasions noted. Nose abrasion
open to air. Anterior neck ecchymosis noted. Pale skin. +2 B/L UE edema present. B/L UE hematomas/ ecchymosis noted. Left AC int infusing Heparin gtt @ 550 units/hr. Weak pedal pulses present. Heels elevated on pillows. Will continue to monitor.
[2023-11-06 20:16] LABS: APTT 114.7 Sec (23.4-35.0)
[2023-11-06 20:33] LABS: Troponin I 0.277 ng/ml
[2023-11-06 20:34] LABS: Blood Urea Nitrogen 52 mg/dl (9-20); Calcium 6.6 mg/dl (8.4-10.2); Carbon Dioxide 20 mmol/L (22-30); Chloride 107 mmol/L (98-107); Estimated Creatinine Clearance 18 ml/min; Glucose 149 mg/dl (70-99); Potassium 4.4 mmol/L (3.5-5.1); Sodium 137 mmol/L (135-145); eGFR 21.98
--- NOTE | 2023-11-06 21:09 | PTCARENOTE ---
Labs reviewed with Edi HARDING. Orders obtained. Cardizem gtt turned off HR 50's-60's Afib on the monitor. BP 91/58. NO urine output thus far. Will continue to monitor.
[2023-11-06] MEDS: CALCIUM GLUCONATE 130 MG IV (21:49)
[2023-11-06] MEDS: MAXIPIME 1000 MG IV (22:49)
[2023-11-07] VITALS (36 sets, daily range): BP systolic 99–150; BP diastolic 50–107; BMI 25.2
[2023-11-07 00:09] LABS: Glucose - Point of Care 171 mg/dl (70-99)
[2023-11-07] MEDS: NOVOLOG FLEXPEN-LOW RESISTANCE 1 UNITS SC ×2 (00:13→12:00)
[2023-11-07 03:23] LABS: Hematocrit 31.6 % (39.0-52.0); Hemoglobin 11.1 g/dL (13.0-18.0); Mean Corp Hgb Conc. 35.1 g/dL (33.0-37.0); Mean Corpuscular Hgb 30.2 pg (27.0-31.0); Mean Corpuscular Volume 85.9 fL (80.0-94.0); Mean Platelet Volume 12.7 fL (7.4-10.4); Platelet Count 174 10^3/uL (130-400); Red Blood Cell Count 3.68 10^6/uL (4.70-6.10); White Blood Cell Count 28.8 10^3/uL (4.8-10.8)
[2023-11-07 03:36] LABS: APTT 77.1 Sec (23.4-35.0)
[2023-11-07] MEDS: FLAGYL 500 MG 100 IV ×3 (03:51→20:09)
[2023-11-07 04:39] LABS: ALT (SGPT) 489 U/L (0-50); Albumin 2.6 g/dl (3.5-5.0); Alkaline Phosphatase 70 U/L (38-126); Blood Urea Nitrogen 60 mg/dl (9-20); Calcium 7.2 mg/dl (8.4-10.2); Carbon Dioxide 19 mmol/L (22-30); Chloride 107 mmol/L (98-107); Estimated Creatinine Clearance 16 ml/min; Glucose 141 mg/dl (70-99); Potassium 4.6 mmol/L (3.5-5.1); Sodium 137 mmol/L (135-145); Total Bilirubin 1.6 mg/dl (0.2-1.3); Total Protein 4.9 g/dl (6.3-8.2); eGFR 19.37
[2023-11-07 04:43] LABS: Vancomycin Random 15.3 ug/ml
[2023-11-07 04:55] LABS: AST (SGOT) 1445 U/L (17-59)
[2023-11-07 05:06] LABS: Absolute Neutrophils -Man Diff 25.9 10^3/uL (1.4-6.5); Anisocytosis 1+; Band Neutrophils 15 % (0-3); Lymphocytes 6 % (20-51); Monocytes 4 % (2-9); Normal RBC Morphology No; Platelets Checked Yes; Segmented Neutrophils 75 % (42-75)
[2023-11-07 05:07] LABS: Hypochromasia 1+; Polychromasia Occasional; Total Cells Counted 100; Toxic Granulation 1+; Vacuolated Segs Occasional
[2023-11-07 05:08] LABS: Acanthocytes Occasional; Ovalocytes 1+; Tear Drop Red Blood Cells Occasional
[2023-11-07 05:22] LABS: Creatine Phosphokinase 79390 U/L (55-170)
[2023-11-07 06:09] LABS: Glucose - Point of Care 143 mg/dl (70-99)
[2023-11-07] MEDS: NOVOLOG FLEXPEN-LOW RESISTANCE SC ×2 (06:13→17:51)
[2023-11-07] MEDS: LOPRESSOR 5 MG IV ×2 (06:34→20:09)
--- NOTE | 2023-11-07 07:55 | W.PN.NEPH.PH ---
Today's Communication / Plan
-
will contact IR for HD catheter placement
HD today
Assessment/Plan
-
IMP:
Septic shock /bandemia unclear etiology
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
TME
h/o HTN�benign
Hypotension secondary to septic shock
Severe hyperkalemia
NEFTALI (rhabdo)
h/o HTN�benign
h/o HTN�benign
Abdominal pain
Hyperglycemia, no h/o DM
Hypocalcemia
A-fib with RVR/ A-fib
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
HLD
Hx chronic diastolic CHF
2D echo 08/01/2022: EF 55-60% no wall abnormalities, mild to moderate MR, mild AR, mild pulm HTN pulm pressure 47 mmHg
Plan:
NEFTALI worsening remains anuric, creatinine up to 3
CPK levels ~80K
A/w AMS, fall at home unwitnessed with concern of CVA, CTA not revealing
felt to be from metabolic derangements per neuro
Replete potassium
IV fluids were discontinued last evening due to an uric urine output
Hemodynamically stable
Patient remains critically ill with hypotension persistent oliguric acute renal failure
Following urine output is concerning and dialysis may need to be entertained within next 24 hours as patient remains persistently tachypneic likely driven by underlying metabolic acidosis
Patient remains critically ill with evolving rhabdomyolysis acute renal failure tachypnea and atrial fibrillation with rapid ventricular response on Cardizem IV drip
d/w primary, nursing
-
-
Date of Service: November 07, 2023
CC / HPI / ROS
-
Chief Complaint:
NEFTALI
Metabolic acidosis
History of Present Illness:
Metabolic acidosis persist
NEFTALI worsening up to 3
Hypocalcemia
CPK level up to ~80K
Review of Systems:
anuric via kang
Tachypnea
no fever
Labs
-
Labs:
WBC 28.8 10^3/uL (4.8-10.8) H 11/07/23 03:15
RBC 3.68 10^6/uL (4.70-6.10) L 11/07/23 03:15
Hgb 11.1 g/dL (13.0-18.0) L 11/07/23 03:15
Hct 31.6 % (39.0-52.0) L 11/07/23 03:15
Plt Count 174 10^3/uL (130-400) 11/07/23 03:15
Sodium 137 mmol/L (135-145) 11/07/23 03:15
Potassium 4.6 mmol/L (3.5-5.1) 11/07/23 03:15
Chloride 107 mmol/L (98-107) 11/07/23 03:15
Carbon Dioxide 19 mmol/L (22-30) L 11/07/23 03:15
BUN 60 mg/dl (9-20) H 11/07/23 03:15
Creatinine 3.0 mg/dL (0.7-1.3) H 11/07/23 03:15
eGFR 19.37 11/07/23 03:15
Glucose 141 mg/dl (70-99) H 11/07/23 03:15
Calcium 7.2 mg/dl (8.4-10.2) L 11/07/23 03:15
Phosphorus 5.5 mg/dl (2.5-4.5) H 11/05/23 13:48
Albumin 2.6 g/dl (3.5-5.0) L 11/07/23 03:15
Physical Exam
-
Vital Signs:
Vital Signs
Temp Pulse Resp BP Pulse Ox
97.4 F 72 19 148/90 97
05/11/24 07:52 11/07/23 06:34 11/07/23 05:45 11/07/23 06:34 11/07/23 05:45
Cardiovascular:: Irregular rate and rhythm
Respiratory:: Bilateral: Coarse
Lung Excursion:: Normal
Abdomen:: Nontender and Soft
Bowel Sounds:: Normal
Extremity Edema:: None: Bilateral:
Kang Catheter: Yes
--- NOTE | 2023-11-07 08:07 | PHA.VAN.FU ---
Addendum entered and electronically signed by Tawanda Borjas [facility] 11/07/23 08:18:
Communication with Dr Mueller. Will hold off dosing IV vancomycin 750mg today until after hemodialysis catheter is placed.
Original Note:
Vancomycin Assessment / Plan
- Assessment
Renal Function: SCR Increasing (2.7>3.0)
WBC's are: Trending Down (33.9>28.8)
In the past 24 hrs, patient has been: Afebrile
Concomitant Antimicrobials: Cefepime, metronidazole
- Assessment - Therapeutic Drug Monitoring
Random Level: 15.3 drawn ~38hrs after 2gm loading dose given
- Dosing Plan
Dosing by Level: Re-dose today (Vancomycin 750mg IV x 1 dose (~10mg/kg))
- Monitoring Plan
Random Level: Ordered for 11/08/23 at 06:00
- Follow Up
Pharmacy will continue to follow.
Vancomycin Follow UP
- -
Patient Age: 88
Patient Sex: Male
Vancomycin Day #: 3
Indication: Other (progress notes indic pulmonary)
Requesting Provider: Roberto Gaines NP
Pertinent Antimicrobial Allergies:
no pertinent allergies
Height / Weight:
Height 5 ft 7 in
Actual Weight 72.9 kg
Pertinent Past Medical History: none pertinent
- Vital Signs / Lab Results
Temp Pulse Resp BP Pulse Ox
97.4 F 72 19 148/90 97
11/07/23 07:52 11/07/23 06:34 11/07/23 05:45 11/07/23 06:34 11/07/23 05:45
Lab Results - Hematology
11/05/23 11/05/23 11/06/23
09:10 18:47 04:59
WBC 29.9 H 26.1 H 33.9 H
Band Neutrophils 15 H 14 H
11/07/23
03:15
WBC 28.8 H
Band Neutrophils 15 H
Lab Results - Chemistry
11/05/23 11/05/23 11/05/23
09:10 13:48 16:00
BUN 23 H 28 H Cancelled
Creatinine 2.1 H 1.5 H Cancelled
Estimated Creat Clear 23 32 Cancelled
Albumin 3.4 L
11/05/23 11/05/23 11/05/23
18:00 18:47 20:00
BUN Cancelled 30 H Cancelled
Creatinine Cancelled 1.5 H Cancelled
Estimated Creat Clear Cancelled 32 Cancelled
Albumin
11/05/23 11/06/23 11/06/23
22:00 04:59 14:59
BUN Cancelled 38 H Cancelled
Creatinine Cancelled 1.9 H Cancelled
Estimated Creat Clear Cancelled 25 Cancelled
Albumin 2.7 L
11/06/23 11/06/23 11/07/23
15:46 19:55 03:15
BUN 50 H 52 H 60 H
Creatinine 2.5 H 2.7 H 3.0 H
Estimated Creat Clear 19 18 16
Albumin 2.6 L
11/05/23 11/05/23 11/05/23
10:04 13:48 19:01
Lactic Acid 10.5 H* 6.7 H* 5.2 H*
11/06/23
00:42
Lactic Acid 4.5 H*
Microbiology Results
11/05/23 10:04 Blood Culture - Preliminary
Blood/Venous No Growth in 24 hours- Final report to follow
11/05/23 09:46 Blood Culture - Preliminary
Blood/Venous No Growth in 24 hours- Final report to follow
11/05/23 10:33 Urine Culture - Final
Urine NO GROWTH
Therapeutic Drug Monitoring
Random Vancomycin 15.3 ug/ml 11/07/23 03:15
[2023-11-07] MEDS: PROTONIX IV 40 MG IV (08:21)
[2023-11-07] MEDS: NSS (PRESERVATIVE FREE) 10 ML IV (08:21)
--- NOTE | 2023-11-07 08:45 | W.PN.HOSP.TC ---
Today's Communication/Plan
-
acute HD to start after temp HD line placement by IR
MRI brain w/wo contrast
possible LP if family agrees. Neuro will d/w family
continue IV Abx per PNA
Assessment / Plan
Assessment / Plan
Assessment:
Acute rhabdomyolysis (traumatic)
Acute life-threatening hyperkalemia
NEFTALI with oliguria, possible ATN
Severe metabolic (lactic acidosis)
Hypocalcemia
- s/p ER temporization: insulin/dextrose, IV Calc gluconate, Kayexalate, Lokelma, bicarb x 2, Albuterol, IVF
- repeat K+ is now 4.6 (had briefly become hypokalemic)
- repeat Cr 3.0, urine output oliguric
- s/p sodium bicarbonate IVF; stopped due to risk of CHF
- hold nephrotoxins
- monitor I/Os and Silvestre
- with worsening renal failure, place temp HD cath and start acute HD Today
- d/w Nephrology.
Severe sepsis (leucocytosis, tachypnea, bandemia, lactic acidosis)
- continue sepsis protocol IVF; follow lactates most recently 4.5
- may need pressors (ok'd by Son)
- follow cultures
- CT A/P (dry): Patchy parenchymal opacity within the visualized lower lungs, and degree of opacity appears greater than usually expected with atelectasis. Findings raise concern for bilateral lower lung pneumonia. There is probably a trace amount
of pleural fluid bilaterally.
- CT Chest: Parenchymal opacification of the lower lobes of the lungs bilaterally, greater than would be expected for dependent atelectasis. Findings are suspicious for bilateral lower lobe pneumonia. Rounded density within the posterior aspect of
the right major fissure, which is likely loculated pleural fluid extending into the major fissure.
- continue Vanco, Cefepime, Flagyl, day 3
Non-[place] trop elevation in setting of sepsis. afib (non ischemic myocardial injury)
- suspected underlying CAD with Coronary artery calcifications on CT
- trop peaked at .31
Abdominal pain
- cannot tolerate PO or IV contrast
- CT A/P (dry) without acute pathology, possible stercoral colitis covered by Cefepime/Flagyl
- LFTs AST >>ALT consistent with rhabdo, sepsis
- IV PPI
Permanent A.fib with RVR
HX of Ablation
- TSH normal
- s/p Cardizem drip
- IV Lopressor per Cardiology
- on IV heparin - requires intensive monitoring
Aphasia/confusion concern for CVA versus acute metabolic encephalopathy from all above medical processes
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
Fall with knee, head abrasions
Hx of Multiple CVA and Vascular dementia
- remains quadriplegia despite K normalization
- stat CT and CT-A negative, spinal MRI negative
- obtain MRI brain w/wo contrast
- may need LP if family agreeable
- Neuro following
- neuro checks
- PT/OT/ST when able
- wound care for abrasions
Acute hyperglycemia from stress of medical illness
No hx of DM
- repeat BMP with AG 12
- + ketones but unlikely DKA
- sliding scale + accu-checks q6h while NPO
- A1c 6.7%
Hypocalcemia
- workup pending
- IV Calcium replacement with HD
Essential HTN
- hold BP meds for sepsis state
HLD - hold statin
Hx chronic diastolic CHF
- monitor weights, I/Os
- hold Lasix
Slightly displaced fracture involving the anterior and superior margin of the upper sacrum. Stranding soft tissue density within the adjacent presacral space which likely represents contusion/stranding hematoma associated with this fracture.
DVT ppx: IV Heparin
Code: DNR/DNI
Total Critical Care Time 42 minutes. I was immediately available to the patient and staff. I personally examined, reviewed labs, diagnostic images/reports, interpretations, treatment plans, discussed patient care with other providers and family
or caregivers (if patient is unable to make decisions), entered orders as appropriate and documented the medical record.
Anticipated Discharge: > 48 hours
Subjective/Interval History
-
Date of Service: November 07, 2023
urine output remains minimal
NEFTALI worsening
CPK level slightly improved
remains most non-verbal
Objective Data
-
Labs:
Laboratory Results
11/07/23 11/07/23
03:15 09:00
WBC 28.8 H
Hgb 11.1 L
Hct 31.6 L
Plt Count 174
APTT 77.1 H Pending
Sodium 137
Potassium 4.6
Chloride 107
Carbon Dioxide 19 L
BUN 60 H
Creatinine 3.0 H
Glucose 141 H
Calcium 7.2 L
Total Bilirubin 1.6 H
AST 1445 H*
ALT 489 H
Alkaline Phosphatase 70
Vital Signs:
Vital Signs
Temp Pulse Resp BP Pulse Ox
97.4 F 72 19 148/90 97
11/07/23 07:52 11/07/23 06:34 11/07/23 05:45 11/07/23 06:34 11/07/23 05:45
I&O
11/06/23 11/07/23 11/08/23
06:59 06:59 06:59
Intake Total 1417.1 / 1417.1 401.0 / 401.0
Output Total 350 / 350 3 / 3
Balance 1067.1 / 1067.1 398.0 / 398.0
Physical Exam
-
General: Appears in Distress
HEENT: Normocephalic and Atraumatic
Respiratory: Negative Wheezes
Cardiac: Irregular Rhythm
GI: Tender (diffusely, no rigidity)
Musculoskeletal: No Edema
Neuro: Awake
Psych: Calm
Data Reviewed
-
Critical Care Time (in minutes): 42
Labs: Labs Reviewed by me
--- NOTE | 2023-11-07 09:11 | W.PN.NEURO.1 ---
Today's Communication / Plan
-
According to the patient's family, their goal is comfort care and to not pursue aggressive diagnostic or treatment modalities. Accordingly, will discontinue plans for MRI of brain and lumbar puncture.
Neuro Assessment/Plan
Assessment
Neuro Imaging: MRI of the cervical spine and thoracic spine with no acute spinal cord compression or obvious signs of acute intrinsic spinal cord abnormality, chronic myomalacia around C4-C5,
CTA head and neck no acute occlusions in MCA or basilar artery
CT head no hemorrhage, chronic strokes noted, no acute infact
Impressions
1. 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
2. History of multiple strokes and likely vascular dementia at baseline
Plan
Recommendations:
Treat hyperglycemia
Okay to continue his existing home apixaban
Neurologic checks monitor for improvement in muscle strength as his metabolic abnormalities are treated
According to the patient's family, their goal is comfort care and to not pursue aggressive diagnostic or treatment modalities. Accordingly, will discontinue plans for MRI of brain and lumbar puncture.
Will follow as needed
Subjective/Objective
Subjective Data
Date of Service: November 07, 2023
Patient unable to provide his own medical history
Objective Data
Vital Signs
Temp Pulse Resp BP Pulse Ox
36.3 C 72 19 148/90 97
11/07/23 07:52 11/07/23 06:34 11/07/23 05:45 11/07/23 06:34 11/07/23 05:45
Lab Results
11/07/23 03:15
11/07/23 03:15
PT 28.9 Sec (11.4-14.6) H 11/05/23 14:38
INR 2.68 11/05/23 14:38
APTT 77.1 Sec (23.4-35.0) H 11/07/23 03:15
Sodium 137 mmol/L (135-145) 11/07/23 03:15
Potassium 4.6 mmol/L (3.5-5.1) 11/07/23 03:15
BUN 60 mg/dl (9-20) H 11/07/23 03:15
Glucose 141 mg/dl (70-99) H 11/07/23 03:15
Calcium 7.2 mg/dl (8.4-10.2) L 11/07/23 03:15
Phosphorus 5.5 mg/dl (2.5-4.5) H 11/05/23 13:48
LDL Cholesterol, Calc -1 mg/dl 11/06/23 04:59
Patient Allergies
tape Allergy (Uncoded 11/05/23 09:30)
blisters
Review of Systems
-
Unable to obtain full review of systems at this time due to: Dementia
History Source: Patient
All other systems: Reviewed and negative
Physical Exam
-
General: No Apparent Distress and Appears Stated Age
Eyes: Round OU, [place] Conjunctivae and No Ptosis
HEENT: Anicteric and Moist Mucous Membranes
Neck: Full Range of Motion
Respiratory: No Dyspnea
Cardiac: No JVD
GI: Non-distended
Skin: Unremarkable
Extremities: No Clubbing, No Cyanosis and No Edema
Psych: Unable to Assess
Extended Neurological Exam
Mood & Affect: Affect Unremarkable
Attention Span & Concentration: Awake and Other (Unable to follow single step requests); Negative Alert or Interactive
Memory: Unable to Assess
Tremor: Hand Tremor Absent and Head Tremor Absent
Involuntary Movement: None
Speech: Mute
Cranial Nerve II: Left Eye: Pupillary Size Unremarkable and Visual Wilcox Grossly Intact
Cranial Nerve II: Right Eye: Pupillary Size Unremarkable and Visual Wilcox Grossly Intact
Cranial Nerves III, IV, : Extraocular Movement: Grossly Intact
Cranial Nerve V: Facial Sensation: Unable to Assess
Cranial Nerve VII: Facial Symmetry: Normal Facial Symmetry
Cranial Nerve VIII: Hearing: Unable to Assess
Cranial Nerves IX, X: Palate Movement: Unable to Assess
Cranial Nerve XII: Tongue Protusion: Unable to Assess
Muscle Strength, Overall: Absent (Throughout otherwise) and Spontaneously Moves (Toes bilaterally)
Muscle Bulk & Tone: Bulk Unremarkable and Reduced Tone (Diffusely)
Pronator Drift: Unable to Assess
Deep Tendon Reflexes: Absent Throughout
Touch Sensation: Unremarkable and Other (Does grimace with pain stimulation involving the left hand); Negative Withdrawal to Pain
Coordination: Unable to Assess
Gait & Station: Unable to Assess
Data Reviewed
-
Labs: Report Reviewed
Reviewed with: Physician and Family (son over the phone)
Old Records: Summarized
Past History
Past History
ED Past Medical History: Arrthythmia (Atrial fibrillation), CVA (February 2019 left MCA stroke; September 2018 acute stroke while in [place]; right internal capsule lacunar infarct prior to 2002), HTN, Hypercholesterolemia, Other (macular pucker,
orthostatic hypotension, vitamin B12 deficiency, erectile dysfunction) and Other (syncope in 2002)
ED Past Surgical History: Cardiac (A. fib ablation November 2016), Orthopedic (L (2006) and R (2011) hip replacments.), Tonsilectomy and Other (cataract extractions, pulmonary vein isolation 2016)
Social History
Tobacco: Former smoker (Quit at age 27, smoked one half pack per day for less than 10 years)
Alcohol: Occasional
Personal:
Living: with family
Employment: Retired
Family History
Family History: Other (reviewed and noncontributory)
Medications
-
Medications:
Generic Name Dose Route Start Last Admin
Trade Name Freq PRN Reason Stop Dose Admin
Acetaminophen 650 mg 11/05/23 15:50 11/05/23 18:04
Acetaminophen 650 Mg Rectal Suppository RECTAL 12/03/23 15:49 650 mg
Q4HPRN PRN Administration
mild pain/SAINZ/temp> 100.4F
Bisacodyl 10 mg 11/05/23 15:50
Bisacodyl 10 Mg Rectal Suppository RECTAL 12/03/23 15:49
[id number] PRN
constipation
Cefepime HCl 1,000 mg 11/06/23 22:00 11/06/23 22:49
Cefepime Hcl 1,000 Mg/11.3 Ml Vial IV 1,000 mg
Q12H JOSE ELIAS Administration
Dextrose 12.5 grams 11/05/23 14:46
Dextrose 50% (0.5 Grams/Ml) 50 Ml Syringe IV 12/03/23 14:45
[id number] PRN
hypoglycemia
Protocol
Glucagon 1 mg 11/05/23 14:46
Glucagon 1 Mg Vial IM 12/03/23 14:45
PRN PRN
hypoglycemia
Protocol
Heparin Sodium 25,000 units in 250 mls @ 0 mls/hr 11/05/23 14:45 11/05/23 15:32
Heparin 76142 Units/250 Ml IV 250 mls
PER PROTOCOL JOSE ELIAS Administration
Protocol
Per Protocol
Vancomycin HCl 1 each/ Device 0 mls @ 0 mls/hr 11/05/23 15:50
IV
PER PROTOCOL JOSE ELIAS
Protocol
As Directed
Metronidazole 100 mls @ 100 mls/hr 11/06/23 12:00 11/07/23 03:51
Flagyl 500 Mg IV 100 mls
Q8H JOSE ELIAS Administration
Diltiazem HCl 125 mg in 125 mls @ 0 mls/hr 11/06/23 19:23
Cardizem IV
PER PROTOCOL JOSE ELIAS
Protocol
Per Protocol
Insulin Aspart 0 units 11/06/23 12:00 11/07/23 06:13
Insulin Aspart Low Resistance 300 Units/3 Ml Pen.Injctr SC 12/04/23 11:59 Not Given
Q6 JOSE ELIAS
Protocol
Mannitol 12.5 grams 11/07/23 09:00
Mannitol 25% (12.5 Grams/50 Ml) Vial IV 11/07/23 10:01
HD-Q1H JOSE ELIAS
Metoprolol Tartrate 5 mg 11/05/23 18:00 11/07/23 06:34
Metoprolol 5 Mg/5 Ml Vial IV 12/03/23 17:59 5 mg
Q6 JOSE ELIAS Administration
Metoprolol Tartrate 5 mg 11/05/23 20:51 11/05/23 20:55
Metoprolol 5 Mg/5 Ml Vial IV 12/03/23 20:50 5 mg
Q6HPRN PRN Administration
if HR >120
Pantoprazole Sodium 40 mg 11/06/23 08:00 11/07/23 08:21
Pantoprazole Sodium 40 Mg/10 Ml Vial IV 12/04/23 07:59 40 mg
DAILY JOSE ELIAS Administration
Sodium Chloride 10 ml 11/06/23 08:00 11/07/23 08:21
Sodium Chloride 0.9% (Preservative Free) 10 Ml Vial IV 12/04/23 07:59 10 ml
DAILY JOSE ELIAS Administration
Sodium Chloride 0 flush 11/05/23 15:00
Sodium Chloride 0.9% (Flush) Syringe IV 12/03/23 14:59
PER PROTOCOL JOSE ELIAS
Sodium Chloride 10 ml 11/07/23 08:14
Sodium Chloride (4 Meq/Ml) 30 Ml Vial *For Hemodialysis* IV 11/07/23 23:59
HD-Q1HPRN PRN
cramps
Sterile Water 10 ml 11/06/23 22:00 11/06/23 22:49
Sterile Water For Injection 10 Ml Vial IV 12/04/23 21:59 10 ml
Q12H JOSE ELIAS Administration
--- NOTE | 2023-11-07 09:31 | W.PN.CD ---
Today's Communication / Plan
-
stop diltiazem drip
continue IV lopressor 5mg q6hr while NPO
continue heparin drip
Impression / Plan
-
Change in MS, weakness, aphasia:
-patient evaluated by neuro- no stroke suspected.
Severe sepsis:
-elevated WBC, lactic acid, hypothermia
-suspected PNA
-broad ABX
AFIB with RVR
-patient seems to have permanent AFIB at this point.
-treat underlying illness
-stop diltiazem drip
-continue IV lopressor 5mg q6hr while NPO
-on Eliquis for OAC ([id number] score 7 for age, CVA, HTN, CHF, DM). On Eliquis. He is ordered heparin drip for now (requires intensive monitoring).
-echo 11/05 shows EF 45-50%, mild AR, severe TR
.
Rhabdomyolysis with acute renal failure
-Nephrology consulted: likely HD toda
HTN:
-monitor on IV lopressor
Subjective
Does not open eyes today
CCT 31 minutes
Physical Exam
Vital Signs/Labs
Vital Signs
Temp Pulse Resp BP Pulse Ox
97.4 F 72 19 148/90 97
11/07/23 07:52 11/07/23 06:34 11/07/23 05:45 11/07/23 06:34 11/07/23 05:45
11/06/23 11/07/23 11/08/23
06:59 06:59 06:59
Actual Weight 71.7 kg 72.9 kg
11/07/23 03:15
11/07/23 03:15
PT 28.9 Sec (11.4-14.6) H 11/05/23 14:38
INR 2.68 11/05/23 14:38
APTT 77.1 Sec (23.4-35.0) H 11/07/23 03:15
Magnesium 2.5 mg/dl (1.6-2.3) H 11/05/23 09:10
Triglycerides 83 mg/dl (10-149) 11/06/23 04:59
LDL Cholesterol, Calc -1 mg/dl 11/06/23 04:59
VLDL Cholesterol, Calc 16 mg/dl (0-30) 11/06/23 04:59
HDL Cholesterol 41 mg/dl 11/06/23 04:59
LAB Results
11/05/23 11/05/23 11/06/23
09:11 18:47 02:07
Troponin I 0.089 H* 0.187 H* 0.275 H* D
11/06/23 11/06/23 11/06/23
14:59 15:46 19:55
Troponin I Cancelled 0.310 H* 0.277 H*
Physical Exam
Constitutional: Other (lethargic)
EENT: Moist mucous membranes
Cardiovascular: Pedal edema is absent, JVD pressure is normal, Rhythm/rate is irregular and Systolic murmur present
Respiratory: Respiratory effort normal
GI: Soft
Neuro/Psych: Other (lethargic)
Data Reviewed
-
Date of Service: November 07, 2023
EKG: Other (Tele: A fib 60s-70s)
Echo: Report Reviewed by me
Labs: Labs Reviewed by me
[2023-11-07] MEDS: MAXIPIME 1000 MG IV ×2 (10:04→21:19)
[2023-11-07] MEDS: STERILE WATER FOR INJECTION 10 ML IV ×2 (10:04→21:19)
[2023-11-07 11:06] LABS: APTT 124.8 Sec (23.4-35.0)
--- NOTE | 2023-11-07 11:18 | PTCARENOTE ---
Patient nonverbal, flaccid, not following commands. PERRLA@2. Squeezes eyes tight when attempting to assess and clenches mouth shut when attempting mouth care. No movement of extremities except slight outward turning and sliding back of LLE after
repositioning. On 1 L NC, sats 95%. Afib on monitor. VSS. Heparin currently infusing at 450u/hr, waiting for PTT results. Oliguric, kang with 4cc total this shift of dark urine. Temporary HD cath placed. Xray to confirm placement ordered. Due for
MRI after HD. Son updated at bedside. Continuing to closely monitor patient.
[2023-11-07] MEDS: HEPARIN 25000 UNITS/250 ML IV (11:54)
[2023-11-07 12:05] LABS: Glucose - Point of Care 151 mg/dl (70-99)
[2023-11-07] MEDS: LOPRESSOR IV (13:16)
[2023-11-07] MEDS: MANNITOL 12.5 GRAMS IV ×2 (17:40→18:31)
[2023-11-07 17:47] LABS: Glucose - Point of Care 130 mg/dl (70-99)
[2023-11-07 18:01] LABS: APTT 53.1 Sec (23.4-35.0)
--- NOTE | 2023-11-07 18:01 | W.PN.NEPH.HD ---
Assessment
-
Patient on hd
u/f for 1 kg as hemodynamically tolerated
mannitol times two
HD again tomrrow
Progress Note - Hemodialysis
-
Date of Service: November 07, 2023
Duration: 2 hours
Potassium Bath: 3
Calcium Bath: 3
Opti-Dialyzer: 160
Ultrafiltration: Other (1kg as tolerated)
Blood Flow: 200
Dialysate Flow: 600
Heparin: none
EPO: none
[2023-11-07] MEDS: HEPARIN 2100 UNITS INTRACATH (19:38)
--- NOTE | 2023-11-07 20:00 | PTCARENOTE ---
Resumed care of pt with first HD treatment just finishing up. Pt tolerated well. Vitals signs stable. Pt responsive to pain, withdraws from pain. Nonverbal. opens eyes and stares at ceiling, will not look at staff or track. Will not follow any
commands. Absent hand grasps. Only movement seen is withdrawl from pain, other owens flaccid extremities. Will grimace, and bite down when attempting oral care. Resists when being turned. HR in the low 100's in Afib with PVC's on the monitor. HR
irreg. POX 99% on 2 LO2 NC. Lungs dec t/o. Occ dry weak cough. + bowel, round abd. Pt inc of soft brown BM, scotty care provided. Sacral foam applied to sacrum for protection. Silvestre in place with scant brown urine in tubing. + 2 pitting B/L UE edema.
Weak peripheral pulses present. B/L heel foams in place for protection. B/L knee foams in place. Anterior neck ecchymosis noted. Scabbed nose. B/L UE hematomas present. Left AC int infusing Hep gtt @550units/hr. Right AC int, Right forearm int
capped. Pt repositioned. HOB elevated. Will continue to monitor.
[2023-11-07] MEDS: VANCOCIN 150 IV (20:09)
[2023-11-08] VITALS (31 sets, daily range): BP systolic 91–144; BP diastolic 46–84; BMI 25.4
--- NOTE | 2023-11-08 | PTCARENOTE ---
Pt inc of large soft bm. Scarlet care provided. pt repositioned. Pt appears to be moving head back in forth repetitively as if saying no. Pt grimacing and pushing back during repositioning. Vital signs stable. heparin gtt infusing @ 550units/hr. No
other changes in assessment noted at this time. Will continue to monitor.
[2023-11-08] MEDS: NOVOLOG FLEXPEN-LOW RESISTANCE 1 UNITS SC ×2 (00:07→05:36)
[2023-11-08] MEDS: LOPRESSOR 5 MG IV ×3 (00:09→12:10)
[2023-11-08 00:17] LABS: Glucose - Point of Care 150 mg/dl (70-99)
[2023-11-08 00:48] LABS: APTT 93.2 Sec (23.4-35.0)
[2023-11-08] MEDS: FLAGYL 500 MG 100 IV ×2 (04:15→12:12)
[2023-11-08 04:38] LABS: % Basophils 0.3 % (0-2); % Immature Granulocytes 0.9 % (0-0.5); % Lymphocytes 7.2 % (20.5-51.1); % Monocytes 3.8 % (1.7-9.3); % Neutrophils 87.8 % (42.2-75.2); Absolute Basophils 0.1 10^3/uL (0-0.2); Absolute Immature Granulocytes 0.2 10^3/uL (0-0.05); Absolute Lymphocytes 1.7 10^3/uL (1.2-3.4); Absolute Monocytes 0.9 10^3/uL (0.1-0.6); Absolute Neutrophils 20.8 10^3/uL (1.4-6.5); Hematocrit 30.1 % (39.0-52.0); Hemoglobin 10.3 g/dL (13.0-18.0); Mean Corp Hgb Conc. 34.2 g/dL (33.0-37.0); Mean Corpuscular Hgb 29.9 pg (27.0-31.0); Mean Corpuscular Volume 87.2 fL (80.0-94.0); Nucleated Red Blood Cells % 0 % (-); Red Blood Cell Count 3.45 10^6/uL (4.70-6.10); White Blood Cell Count 23.7 10^3/uL (4.8-10.8)
[2023-11-08 04:45] LABS: APTT 83.5 Sec (23.4-35.0)
[2023-11-08 05:06] LABS: ALT (SGPT) 468 U/L (0-50); Albumin 2.5 g/dl (3.5-5.0); Alkaline Phosphatase 72 U/L (38-126); Blood Urea Nitrogen 58 mg/dl (9-20); Calcium 6.6 mg/dl (8.4-10.2); Carbon Dioxide 21 mmol/L (22-30); Chloride 103 mmol/L (98-107); Estimated Creatinine Clearance 16 ml/min; Glucose 131 mg/dl (70-99); Potassium 4.4 mmol/L (3.5-5.1); Sodium 134 mmol/L (135-145); Total Bilirubin 1.4 mg/dl (0.2-1.3); Total Protein 4.9 g/dl (6.3-8.2); eGFR 19.37
[2023-11-08 05:20] LABS: AST (SGOT) 857 U/L (17-59)
[2023-11-08 05:26] LABS: Creatine Phosphokinase 29165 U/L (55-170)
[2023-11-08 05:46] LABS: Glucose - Point of Care 150 mg/dl (70-99)
[2023-11-08 06:16] LABS: Mean Platelet Volume 13.2 fL (7.4-10.4); Platelet Count 113 10^3/uL (130-400)
[2023-11-08] MEDS: PROTONIX IV 40 MG IV (07:14)
[2023-11-08] MEDS: NSS (PRESERVATIVE FREE) 10 ML IV (07:14)
--- NOTE | 2023-11-08 08:07 | W.PN.NEPH.HD ---
Assessment
-
Patient seen on dialysis
Systolic blood pressure 121
CPK at 29,000
remains on heparin gtt
Cardizem gtt off
HD again tomorrow
Progress Note - Hemodialysis
-
Date of Service: November 08, 2023
Duration: 20 minutes and 30 minutes
Potassium Bath: 3
Calcium Bath: 3
Opti-Dialyzer: 160
Ultrafiltration: Other (.5kg to 1kg)
Blood Flow: 300
Dialysate Flow: 600
Heparin: no
EPO: no
--- NOTE | 2023-11-08 08:35 | PTCARENOTE ---
Rec'd pt at 0700. Pt minimally responsive, grimaces to tactile stimuli. Does not follow any commands or make purposeful movements. Monitor Afib 100's. Lungs dim, pox 97% 2LNC. +BS, abd soft/nt. Silvestre in place with scant urine output. HD started at
bedside.
[2023-11-08] MEDS: MANNITOL 12.5 GRAMS IV ×2 (08:40→10:07)
[2023-11-08] MEDS: HEPARIN 2200 UNITS INTRACATH (10:44)
--- NOTE | 2023-11-08 11:26 | W.PN.CD ---
Today's Communication / Plan
-
patient is critically ill, and has not shown signs of recovery
family would like to transition to comfort care
Impression / Plan
-
Goal of care
-patient is critically ill, and has not shown signs of recovery
-family would like to transition to comfort care
Change in MS, weakness, aphasia
Severe sepsis
AFIB with RVR
Rhabdomyolysis with acute renal failure
HTN
Physical Exam
Vital Signs/Labs
Vital Signs
Temp Pulse Resp BP Pulse Ox
97.0 F 114 25 103/58 96
11/08/23 07:11 11/08/23 10:15 11/08/23 10:15 11/08/23 10:15 11/08/23 10:15
11/07/23 11/08/23 11/09/23
06:59 06:59 06:59
Actual Weight 72.9 kg 73.4 kg
11/08/23 04:14
11/08/23 04:14
PT 28.9 Sec (11.4-14.6) H 11/05/23 14:38
INR 2.68 11/05/23 14:38
APTT 83.5 Sec (23.4-35.0) H 11/08/23 04:14
Magnesium 2.5 mg/dl (1.6-2.3) H 11/05/23 09:10
Triglycerides 83 mg/dl (10-149) 11/06/23 04:59
LDL Cholesterol, Calc -1 mg/dl 11/06/23 04:59
VLDL Cholesterol, Calc 16 mg/dl (0-30) 11/06/23 04:59
HDL Cholesterol 41 mg/dl 11/06/23 04:59
LAB Results
11/05/23 11/05/23 11/06/23
09:11 18:47 02:07
Troponin I 0.089 H* 0.187 H* 0.275 H* D
11/06/23 11/06/23 11/06/23
14:59 15:46 19:55
Troponin I Cancelled 0.310 H* 0.277 H*
Physical Exam
Constitutional: Other (not responsive)
EENT: Moist mucous membranes
Cardiovascular: Rhythm/rate is irregular
Respiratory: Labored respirations
Neuro/Psych: Other (somnolent, not responsive)
Data Reviewed
-
Date of Service: November 08, 2023
EKG: Other (Tele: A fib )
--- NOTE | 2023-11-08 12:01 | CM ---
Addendum entered by Niranjan Lowe 11/08/23 14:43:
Per doughnut ic[facility] machine pt is accepted for admission to hospice tomorrow and all necessary DME will be delivered to pt's home tomorrow and she is requested spanish moss picker time 12:30p.m.
CM asked [facility] to arrange ambulance for tomorrow 11/09/23 with spanish moss picker time 12:30 p.m. PMNC completed and left on pt's chart. Out of hospital DNR will be signed by . is aware.
D/C plan: home with hospice tomorrow 11/09/23.
CM will follow to assist pt with discharge home with hospice.
Original Note:
CM following re: discharge planning.
Reviewed pt's chart, met with pt. pt's 2 sons and daughter in law at bedside.
CM consult for hospice care noted. Pt's family is aware, expressed their understanding and they stated that hospice care is the most appropriate level of care to pt at this time. Emotional support offered and provided. Pt's family preferred home
hospice per pt's wishes. Pt's family preferred hospice.
A referral to hospice made, spoke to doughnut icer machine Shagufta and she will evaluate the pt shortly. Pt's son Donny is a point person [phone].
IMM reviewed, placed on chart, pt has a copy.
D/C plan: home with hospice probably tomorrow 10/10/23.
CM will follow to assist pt with discharge home with hospice.
[2023-11-08] MEDS: NOVOLOG FLEXPEN-LOW RESISTANCE SC (12:09)
--- NOTE | 2023-11-08 12:15 | PTCARENOTE ---
HD completed at bedside, pt tolerated well. Family in to visit, state that they wish to proceed with transitioning pt to hospice and possible take him home by thursday or thursday if possible. Dr. Brown notified.
[2023-11-08 12:19] LABS: Glucose - Point of Care 108 mg/dl (70-99)
--- NOTE | 2023-11-08 12:52 | HOSPNOTE ---
Addendum entered by Shagufta Wu RN 11/08/23 12:55:
Donny has asked that patient be discharged tomorrow as they need this evening to take down current bed and make room for equipment to be delivered.
Original Note:
Referral received. Called and spoke to patients son Donny. They are all in agreement with hospice and the philosophy. They would like to bring patient home to be with his and to pass with her by his side. They understand that life expectancy is
limited. Equipment has been ordered and set for delivery tomorrow morning. Per Donny, his sister whom they live with in the in law suite will be patients primary caregiver. Reviewed availability of private care givers with Donny as well. Asked [facility]IAGO to
arrange for transport around 1230 pm. Local fill of Morphine and Ativan at [facility] has been arranged as well and Donny will strip picker before the patient comes home. Hospice nurse Renuka will contact Donny tomorrow morning to confirm admission
onto hospice at patients home. CM and Attending made aware.
--- NOTE | 2023-11-08 15:03 | W.PN.HOSP.TC ---
Addendum entered and electronically signed by Manish Brown MD 11/08/23 15:13:
comfort measures moving forward
Original Note:
Today's Communication/Plan
-
hospice arrangements for home hospice Thursday
Assessment / Plan
Assessment / Plan
Assessment:
Acute rhabdomyolysis (traumatic)
Acute life-threatening hyperkalemia
NEFTALI with oliguria, possible ATN
Severe metabolic (lactic acidosis)
Hypocalcemia
- s/p ER temporization: insulin/dextrose, IV Calc gluconate, Kayexalate, Lokelma, bicarb x 2, Albuterol, IVF
- repeat K+ is now 4.6 (had briefly become hypokalemic)
- repeat Cr 3.0, urine output oliguric
- s/p sodium bicarbonate IVF; stopped due to risk of CHF
- hold nephrotoxins
- monitor I/Os and Silvestre
- with worsening renal failure, was started on temp HD without improvement.
- Family has opted for hospice
Severe sepsis (leucocytosis, tachypnea, bandemia, lactic acidosis)
- continue sepsis protocol IVF; follow lactates most recently 4.5
- may need pressors (ok'd by Son)
- follow cultures
- CT A/P (dry): Patchy parenchymal opacity within the visualized lower lungs, and degree of opacity appears greater than usually expected with atelectasis. Findings raise concern for bilateral lower lung pneumonia. There is probably a trace amount
of pleural fluid bilaterally.
- CT Chest: Parenchymal opacification of the lower lobes of the lungs bilaterally, greater than would be expected for dependent atelectasis. Findings are suspicious for bilateral lower lobe pneumonia. Rounded density within the posterior aspect of
the right major fissure, which is likely loculated pleural fluid extending into the major fissure.
- continue Vanco, Cefepime, Flagyl, day 3
Non-OR trop elevation in setting of sepsis. afib (non ischemic myocardial injury)
- suspected underlying CAD with Coronary artery calcifications on CT
- trop peaked at .31
Abdominal pain
- cannot tolerate PO or IV contrast
- CT A/P (dry) without acute pathology, possible stercoral colitis covered by Cefepime/Flagyl
- LFTs AST >>ALT consistent with rhabdo, sepsis
- IV PPI
Permanent A.fib with RVR
HX of Ablation
- TSH normal
- s/p Cardizem drip
- IV Lopressor per Cardiology
- on IV heparin - requires intensive monitoring
Aphasia/confusion concern for CVA versus acute metabolic encephalopathy from all above medical processes
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
Fall with knee, head abrasions
Hx of Multiple CVA and Vascular dementia
- remains quadriplegia despite K normalization
- stat CT and CT-A negative, spinal MRI negative
- obtain MRI brain w/wo contrast
- may need LP if family agreeable
- Neuro following
- neuro checks
- PT/OT/ST when able
- wound care for abrasions
Acute hyperglycemia from stress of medical illness
No hx of DM
- repeat BMP with AG 12
- + ketones but unlikely DKA
- sliding scale + accu-checks q6h while NPO
- A1c 6.7%
Hypocalcemia
- workup pending
- IV Calcium replacement with HD
Essential HTN
- hold BP meds for sepsis state
HLD - hold statin
Hx chronic diastolic CHF
- monitor weights, I/Os
- hold Lasix
Slightly displaced fracture involving the anterior and superior margin of the upper sacrum. Stranding soft tissue density within the adjacent presacral space which likely represents contusion/stranding hematoma associated with this fracture.
DVT ppx: IV Heparin
Code: DNR/DNI
Dispo: transfer to med/surg and plan for DC home Thursday on hospice when arrangements made
Anticipated Discharge: Within 24 hours
Subjective/Interval History
-
Date of Service: November 08, 2023
family has decided to pursue hospice and arrangements requested
Objective Data
-
Labs:
Laboratory Results
11/08/23
04:14
WBC 23.7 H
Hgb 10.3 L
Hct 30.1 L
Plt Count 113 L D
APTT 83.5 H
Sodium 134 L
Potassium 4.4
Chloride 103
Carbon Dioxide 21 L
BUN 58 H
Creatinine 3.0 H
Glucose 131 H
Calcium 6.6 L*
Total Bilirubin 1.4 H
AST 857 H*
ALT 468 H
Alkaline Phosphatase 72
Vital Signs:
Vital Signs
Temp Pulse Resp BP Pulse Ox
97.8 F 107 23 106/67 94
11/08/23 11:19 11/08/23 13:15 11/08/23 13:15 11/08/23 12:00 11/08/23 13:15
I&O
11/07/23 11/08/23 11/09/23
06:59 06:59 06:59
Intake Total 401.0 / 401.0 416 / 416
Output Total 3 /
Balance 398.0 / 396.0 393 / 393
Physical Exam
-
General: Appears in Distress
HEENT: Normocephalic and Atraumatic
Respiratory: Negative Wheezes or Rales
Cardiac: S1/S2 and Irregular Rhythm
Neuro: Awake
Psych: Calm
Data Reviewed
-
Total Time Spent with Patient (in minutes): 41
Labs: Labs Reviewed by me
--- NOTE | 2023-11-08 17:39 | PTCARENOTE ---
~1500-Pt made comfort care/medsurg level. Transferred to [address] [place] [address] [id number] via bed with belongings at 1730.
[2023-11-08] MEDS: MORPHINE SULFATE 2 MG IV (17:53)
--- NOTE | 2023-11-08 18:00 | PTCARENOTE ---
Pt arrived to floor transfer from ICU 1739. Assessment complete. Patient non verbal but very dyspneic . PRN morphine given
--- NOTE | 2023-11-08 18:40 | PTCARENOTE ---
PT NON TUNNELED HD CATH DC'D PER MD. PRESSURE APPLIED AND DRESSING IN PLACE, NO BLEEDING NOTED. PT RESTING
[2023-11-09] MEDS: MORPHINE SULFATE 2 MG IV ×3 (05:52→11:10)
[2023-11-09 08:00] VITALS: BP 109/64
[2023-11-09] MEDS: ROBINUL 0.200000000000000011 MG IV (10:05)
--- NOTE | 2023-11-09 10:24 | W.PN.HOSP.TC ---
Today's Communication/Plan
-
d/c home hospice
Assessment / Plan
Assessment / Plan
11/08
Providing Ativan 1mg for anxiety/agitation.
Discussed with patient accounting representative and family would prefer to take patient home
Script for pain/anxiety medication sent to pharmacy
Discharge order placed

Acute rhabdomyolysis (traumatic)
Acute life-threatening hyperkalemia
NEFTALI with oliguria, possible ATN
Severe metabolic (lactic acidosis)
Hypocalcemia
- s/p ER temporization: insulin/dextrose, IV Calc gluconate, Kayexalate, Lokelma, bicarb x 2, Albuterol, IVF
- repeat K+ is now 4.6 (had briefly become hypokalemic)
- repeat Cr 3.0, urine output oliguric
- s/p sodium bicarbonate IVF; stopped due to risk of CHF
- hold nephrotoxins
- monitor I/Os and Silvestre
- with worsening renal failure, was started on temp HD without improvement.
- Family has opted for hospice
Severe sepsis (leucocytosis, tachypnea, bandemia, lactic acidosis)
- continue sepsis protocol IVF; follow lactates most recently 4.5
- may need pressors (ok'd by Son)
- follow cultures
- CT A/P (dry): Patchy parenchymal opacity within the visualized lower lungs, and degree of opacity appears greater than usually expected with atelectasis. Findings raise concern for bilateral lower lung pneumonia. There is probably a trace amount
of pleural fluid bilaterally.
- CT Chest: Parenchymal opacification of the lower lobes of the lungs bilaterally, greater than would be expected for dependent atelectasis. Findings are suspicious for bilateral lower lobe pneumonia. Rounded density within the posterior aspect of
the right major fissure, which is likely loculated pleural fluid extending into the major fissure.
- continue Vanco, Cefepime, Flagyl, day 3
Non-OH trop elevation in setting of sepsis. afib (non ischemic myocardial injury)
- suspected underlying CAD with Coronary artery calcifications on CT
- trop peaked at .31
Abdominal pain
- cannot tolerate PO or IV contrast
- CT A/P (dry) without acute pathology, possible stercoral colitis covered by Cefepime/Flagyl
- LFTs AST >>ALT consistent with rhabdo, sepsis
- IV PPI
Permanent A.fib with RVR
HX of Ablation
- TSH normal
- s/p Cardizem drip
- IV Lopressor per Cardiology
- on IV heparin - requires intensive monitoring
Aphasia/confusion concern for CVA versus acute metabolic encephalopathy from all above medical processes
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
Fall with knee, head abrasions
Hx of Multiple CVA and Vascular dementia
- remains quadriplegia despite K normalization
- stat CT and CT-A negative, spinal MRI negative
- obtain MRI brain w/wo contrast
- may need LP if family agreeable
- Neuro following
- neuro checks
- PT/OT/ST when able
- wound care for abrasions
Acute hyperglycemia from stress of medical illness
No hx of DM
- repeat BMP with AG 12
- + ketones but unlikely DKA
- sliding scale + accu-checks q6h while NPO
- A1c 6.7%
Hypocalcemia
- workup pending
- IV Calcium replacement with HD
Essential HTN
- hold BP meds for sepsis state
HLD - hold statin
Hx chronic diastolic CHF
- monitor weights, I/Os
- hold Lasix
Slightly displaced fracture involving the anterior and superior margin of the upper sacrum. Stranding soft tissue density within the adjacent presacral space which likely represents contusion/stranding hematoma associated with this fracture.
DVT ppx: IV Heparin
Code: DNR/DNI

Anticipated Discharge: Today
Subjective/Interval History
-
Date of Service: November 09, 2023
minimally agitated
remains unresponsive
no acute issues reported
Objective Data
-
Labs:
Laboratory Results
11/09/23
07:00
Sodium Pending
Potassium Pending
Chloride Pending
Carbon Dioxide Pending
BUN Pending
Creatinine Pending
Glucose Pending
Calcium Pending
Vital Signs:
Vital Signs
Temp Pulse Resp BP Pulse Ox
97.9 F 108 16 109/64 98
11/09/23 08:00 11/09/23 08:00 11/09/23 08:00 11/09/23 08:00 11/09/23 08:00
I&O
11/08/23 11/09/23 11/10/23
06:59 06:59 06:59
Intake Total 416 / 421.5 144.0 / 144.0
Output Total
Balance 393 / 398.5 119.0 / 119.0
Review of Systems
-
Unable to obtain full review of systems at this time due to: Acuity
Physical Exam
-
General: Comfortable; Negative Respiratory Distress
HEENT: Negative Oxygen
Respiratory: Rhonchi
Cardiac: Regular Rhythm and S1/S2; Negative Murmur
GI: Soft, Nontender and Nondistended
Neuro: Negative Awake, Alert or Oriented
[2023-11-09] MEDS: ATIVAN 1 MG IV (10:32)
--- NOTE | 2023-11-09 12:03 | HOSPNOTE ---
Made a visit this morning. Patient is active. Spoke to the patients son and discussed home Hospice verses [facility]. He and his family want home to at home. Local fill of Morphine and lorazepam will be picked up at [facility] by the son.
--- NOTE | 2023-11-09 12:23 | PTCARENOTE ---
Went to patients room at 1200 to assess 1100 morphine. Patient was found pale and not breathing. Dr. Yu and Hospice nurse notified.
--- NOTE | 2023-11-09 12:26 | W.PN.DEATH ---
Pronouncement of
-
Called to see patient to pronounce.
No spontaneous heart tones or respirations noted.
Patient not responsive to verbal stimuli.
Patient is pronounced .
Time of : 12:00
Date of : 11/09/23
Cause of : Sepsis, renal failure, rhabdomyolysis
Family Notified: Yes (global sales manager contacted family)
--- NOTE | 2023-11-09 12:32 | HOSPNOTE ---
Called Patients son Donny and notified him of his fathers passing. Condolences offered.
--- NOTE | 2023-11-09 12:40 | PTCARENOTE ---
[facility] called [phone]. Spoke with Altaf Jackson. Patient does not qualify due to age.
--- NOTE | 2023-11-09 15:12 | PTCARENOTE ---
post mortem care complete. patients things with him. Patient taken to the morgue.
--- NOTE | 2023-11-09 15:46 | CM ---
Patient at 12:00 Noon on this date.
[2023-11-09 21:11] LABS: Hepatitis B Surface Antigen Negative (Negative)
[2023-11-09 21:28] LABS: Hepatitis B Core Ab, Total Negative (Negative); Hepatitis C Antibody Negative (Negative)
[2023-11-09 22:40] LABS: Hepatitis B Surface Antibody Indeterminate
--- NOTE | 2023-11-10 16:46 | W.DCSUMMARY ---
Discharge Summary
Discharge Data
Date of Admission: 11/05/23
Date of Discharge: 11/09/23
-
Pending Results: No
Hospital Course
This is a summary on Mr. Cornelius Fletcher who on 11/09/2023 at 1200
List of hospital diagnosis :
Sepsis
Community-acquired pneumonia
Traumatic abdominal abscess
Acute kidney injury
Hyperkalemia
Nonmyocardial infarction troponin elevation
Permanent atrial fibrillation
History ablation
History of stroke
History of vascular dementia
Hyperglycemia
Hypocalcemia
Essential hypertension
Hyperlipidemia
Chronic diastolic congestive heart failure
Hospital course:
Patient is 88-year-old male with mentioned past medical history brought in by family after patient was noted to having new confusion and abnormal limb position while using walker. Patient was noted to having abrasion/superficial laceration on the
chin. In ER there was concern of patient having flaccid quadriplegia and concern of new stroke. An emergent MRI of the cervical/thoracic spine was done which did not show any sign of cord compression/fracture. CT head and CTA head and neck did
not show any acute abnormality either. Neurology deemed patient symptoms to be flaccid quadriplegia from severe hyperkalemia of and from renal failure. Patient was provided emergent temporizing measure with insulin/dextrose/calcium gluconate
Kayexalate and Lokelma bicarb. Patient repeat potassium was down after all this treatment. Nephrology was involved in care for further help. Beside this patient was also was noted to having new onset of sepsis and was started on empiric
antibiotic. Patient had septic workup done with imaging and likely source was felt to be pneumonia. Patient was also noted to be in A-fib RVR and cardiology was consulted for further help, patient was started on heparin drip. Further testing for
renal dysfunction patient was noted to having significant rhabdomyolysis with CPK of 53,800. Patient IV fluid was changed to bicarb as patient was having associated metabolic acidosis. Patient did not have any good urine output and Silvestre catheter
was placed. Follow-up echocardiogram by cardiology showing patient EF in mid range of 45 to 50% with severe tricuspid regurgitation and mild pulmonary hypertension. No diuresis provided as patient having renal failure and was hypotensive. Patient
continued to remain in sepsis/septic shock and renal function were worsening. Nephrology started patient on temporary dialysis as patient remained oliguric. Overall prognosis was felt to be poor with complex medical issues. Goal of care
discussion was held and patient family agreeable for patient to be transition to comfort care. Patient was intended to be discharged home with home hospice although patient in hospital on 11/09/2023 at 1200.
Discharge Plan
-
Patient Disposition:
Date/Time
Date/Time: 11/09/23 12:00
Discharge Date and Time
Discharge Date/Time: 11/09/23 12:00
Print Language: ZAMBIAN
== END 2023-11-09 12:00 | disposition expired | DRG 871 ==
LOC: 2 NORTH 13:43
PROVIDERS: Clinical Nurse Specialist Family Health; Radiology Vascular & Interventional Radiology; Registered Nurse; Specialist; ADMITTING PHYSICIAN Internal Medicine; ATTENDING PHYSICIAN Hospitalist; CONSULT PHYSICIAN Internal Medicine; CONSULT PHYSICIAN Student in an Organized Health Care Education/Training Program; EMERGENCY PHYSICIAN Emergency Medicine; FAMILY PHYSICIAN Family Medicine; OTHER PHYSICIAN Internal Medicine
PROC: 5A1D70Z Performance of Urinary Filtration, Intermittent, Less than 6 Hours Per Day (ICD-10-PCS; 2023-11-07)
PROC: 05HM33Z Insertion of Infusion Device into Right Internal Jugular Vein, Percutaneous Approach (ICD-10-PCS; 2023-11-08)
DX: A41.9 Sepsis, unspecified organism (principal); G82.50 Quadriplegia, unspecified; R65.21 Severe sepsis with septic shock; J18.9 Pneumonia, unspecified organism; G93.41 Metabolic encephalopathy; N17.9 Acute kidney failure, unspecified; E87.20 Acidosis, unspecified; I48.21 Permanent atrial fibrillation; I50.32 Chronic diastolic (congestive) heart failure; L02.211 Cutaneous abscess of abdominal wall; M62.82 Rhabdomyolysis; I5A Non-ischemic myocardial injury (non-traumatic); E87.5 Hyperkalemia; E83.51 Hypocalcemia; I11.0 Hypertensive heart disease with heart failure; Z66 Do not resuscitate; Z51.5 Encounter for palliative care; E78.00 Pure hypercholesterolemia, unspecified; T79.6XXA Traumatic ischemia of muscle, initial encounter; R29.716 NIHSS score 16; G72.3 Periodic paralysis
CPT/HCPCS: 36556; 36600; 51701; 70450; 70496; 70498; 71045; 71250; 72125; 72156; 72157; 74176; 76937; 80048; 80053; 80061; 80076; 80202; 81003; 81015; 82010; 82150; 82306; 82330; 82550; 82805; 82947; 82962; 83036; 83605; 83690; 83735; 84100; 84443; 84484; 85025; 85027; 85610; 85730; 86704; 86706; 86803; 87040; 87070; 87086; 87340; 92610; 93005; 93306; 94640; 96361; 96374; 96375; 96376; 99291; A9575; C1752; G0257; Q9967